=== PATIENT | female | born 1955 | race Caucasian/White ===

== ENCOUNTER 2018-02-04 12:56 | Inpatient (IN) | payer OTHER ==
[2018-02-04] MEDS ORDERED: NA CHLORIDE 0.9% 1,000 ML ONE (15:24)
[2018-02-04] MEDS ORDERED: ONDANSETRON 4 MG (ODT) TAB ONE (15:24)
[2018-02-04] MEDS ORDERED: PANTOPRAZOLE 40 MG INJ ONE (15:24)
[2018-02-04 15:36] LABS: Absolute Lymphocytes (CBC) 1.1 K/uL (0.7-4.9); Absolute Monocytes 0.4 K/uL (0.1-1.3); Absolute Neutrophil 9.8 K/uL (1.8-8.0); Basophils % 0.4 % (0-1.3); Eosinophils % 0.4 % (0-4.4); Hematocrit 43.6 % (36.0-45.0); Lymphocytes % 9.6 % (15.3-44.8); MCH 28.4 pg (27.0-35.0); MCV 87.9 fL (80-100); MPV 8.5 fL (7.6-11.3); Monocytes % 3.6 % (3.3-12.3); RBC Red Blood Cell Count 4.96 M/uL (3.86-4.86)
[2018-02-04 15:45] LABS: Potassium 4.1 mEq/L (3.6-5.0)
[2018-02-04 15:51] LABS: Albumin 4.5 g/dL (3.2-5.5); Bilirubin Direct 0.1 mg/dL (0-0.2); Bilirubin Total 0.9 mg/dL (0.3-1.2); Magnesium 1.5 mg/dL (1.8-2.5); Protein, Total 8.6 g/dL (6.0-8.3)
[2018-02-04 15:57] LABS: Protime INR 1.18
[2018-02-04] MEDS ORDERED: ONDANSETRON 4 MG/2 ML VIAL ONE ×2 (16:17→20:02)
--- NOTE | 2018-02-04 16:49 | RAD REPORT ---
EXAM DESCRIPTION: CT - Chest Abd Pelvis Wo Con - 02/04/2018 4:31 pm CLINICAL HISTORY: Epigastric pain, chest pain, right-sided abdominal pain, body aches COMPARISON: None. TECHNIQUE: Axial 5 millimeter thick images of the chest abdomen and pelvis were obtained without ora l or IV contrast. Oral contrast was administered. All CT scans are performed using dose optimization technique as appropriate and may include automated exposure control or mA/KV adjustment according to patient size. FINDINGS: The lungs are clear of mass and infiltrate. No pneumothorax or pleural effusion. No ches t wall mass or abnormal axillary lymphadenopathy seen. Mediastinal and hilar regions show no mass or lymphadenopathy. No cardiomegaly or pericardial effusion. Liver shows fatty infiltration with sparing near the gallbladder fossa. No focal liver lesion. Spleen , pancreas, gallbladder and biliary tree show no acute findings. Gallstones can be occult. No hydronephrosis is present. No obstructing or nonobstructing calculi. Trace amount of stranding is seen in the perinephric fat. This is a symmetric pattern. No adrenal abnormalities. No wall thickeni ng, mass or calculus of the urinary bladder. Uterus and ovaries show no suspicious findings. No gastric dilatation or gastric wall thickening. No dilated large or small bowel. Colon is mostly de compressed with no abnormal stool volume. No measurable diverticulosis. Contrast or calcifications ar e present in the appendix. Tail of the pancreas is relatively prominent and 10-11 mm. Trace amount of stranding is seen in the periappendiceal fat. The appendix lies in the midline pelvis. This could ge nerated and atypical presentation for pain. No free air, free fluid or inflammatory stranding. No he rnia, mass or bulky lymphadenopathy. Disc and bony degenerative changes are present. IMPRESSION: The appendix is relatively prominent in size with questionable stranding in the adjacent fat. The appendix is positioned in the midline pelvis. Acute appendicitis is certainly not definitive. Correlation is needed with any clinical or laboratory findings. The appendix location could result in atypical clinical exam findings for appendicitis. Fatty infiltration of the liver. No hydronephrosis or acute finding. Isodense masses and pyelonephritis are not excluded. No acute or significant CT chest finding.
[2018-02-04 17:09] LABS: Blood Morphology Comment NOT SEEN (NOT SEEN); Platelet Estimate ADEQ; Urine White Blood Cell Casts OK
[2018-02-04 18:01] LABS: Urine Blood 1+ (NEG); Urine Glucose NEGATIVE (NEG); Urine Protein 2+ (NEG); Urine Specific Gravity 1.025 (1.005-1.030); Urine pH 5.5 (5.0-7.0)
--- NOTE | 2018-02-04 18:03 | EDPHYS ---
Physician Documentation [facility] Name: Radha Mendez Age: 62 yrs Sex: Female : 1955 Arrival Date: 02/04/2018 Time: 13:00 Bed 27 Private MD: Cher Gilliland ED Physician Arley Bhagat HPI: 02/04 15:09 This 62 yrs old Female presents to ER via Ambulatory with complaints of cp Nausea, Abdominal Pain. 15:09 The patient presents to the emergency department with nausea, with "dry heaves", cp vomiting, that is intermittent. Onset: The symptoms/episode began/occurred this morning, at 06:00. 15:09 Possible causes: unknown. cp 15:09 Associated signs and symptoms: Pertinent positives: increasing right lower abdominal cp pain since this morning. Severity of symptoms: in the emergency department the symptoms are worse moderately. Historical: - Allergies: 13:24 Codeine; hj 13:24 Iodine; hj 13:24 Latex, Natural Rubber; hj - Home Meds: 13:24 amlodipine 5 mg tab 1 tab once daily [Active]; escitalopram oxalate 10 mg Oral tab 1 hj tab once daily [Active]; lisinopril 20 mg Oral tab 1 tab once daily [Active]; ProAir HFA 90 mcg/actuation inhalation HFAA 1 puff every 4 hours [Active]; Xarelto 20 mg Oral tab [Active]; - PMHx: 13:24 a-fib; Hypertension; hj - PSHx: 13:24 ; hj - Immunization history:: Pneumococcal vaccine status is unknown. - Social history:: Smoking status: unknown. ROS: 15:15 Constitutional: Positive for poor PO intake, Negative for body aches, chills, fever. cp 15:15 Eyes: Negative for injury, pain, redness, and discharge, ENT: Negative for injury, cp pain, and discharge, Cardiovascular: Negative for chest pain, palpitations, and edema, Respiratory: Negative for shortness of breath, cough, wheezing, and pleuritic chest pain. 15:15 Abdomen/GI: Positive for abdominal pain, nausea and vomiting, Negative for diarrhea, constipation, black/tarry stool, rectal bleeding. 15:15 Back: Negative for pain at rest, pain with movement, radiated pain. 15:15 : Negative for urinary symptoms. 15:15 Skin: Negative for cellulitis, rash. 15:15 Neuro: Negative for altered mental status, headache, weakness. 15:15 All other systems are negative. Exam: 15:22 Constitutional: The patient appears alert, awake, non-diaphoretic, non-toxic, well cp developed, well nourished, obese, uncomfortable, mild distress 15:22 Head/Face: Normocephalic, atraumatic. cp 15:22 Eyes: Periorbital structures: appear normal, Pupils: equal, round, and reactive to light and accomodation, Extraocular movements: intact throughout, Conjunctiva: normal, no exudate, no injection, Sclera: no appreciated abnormality, Lids and lashes: appear normal, bilaterally. 15:22 ENT: External ear(s): are unremarkable, Nose: is normal, Mouth: Lips: moist, Oral mucosa: pink and intact, moist, Posterior pharynx: is normal, airway is patent, no erythema, no exudate, Voice: is normal. 15:22 Neck: ROM/movement: is normal, is supple, without pain, no range of motions limitations, no meningismus, no nuchal rigidity. 15:22 Chest/axilla: Inspection: normal, Palpation: is normal, no crepitus, no tenderness. 15:22 Cardiovascular: Rate: normal, Rhythm: regular, Pulses: Pulses are 2+ in right radial artery and left radial artery. Edema: is not appreciated, JVD: is not appreciated. 15:22 Respiratory: the patient does not display signs of respiratory distress, Respirations: normal, no use of accessory muscles, no retractions, no splinting, no tachypnea, labored breathing, is not present, Breath sounds: are clear throughout, no decreased breath sounds, no stridor, no wheezing. 15:22 Abdomen/GI: Inspection: abdomen appears normal, Bowel sounds: active, all quadrants, Palpation: soft, in all quadrants, mild abdominal tenderness, in the epigastric area, moderate abdominal tenderness, in the suprapubic area and right lower quadrant, rebound tenderness, is appreciated in the right lower quadrant, involuntary guarding, is elicited in the right lower quadrant. 15:22 Back: CVA tenderness, is absent. 15:22 Skin: cellulitis, is not appreciated, no rash present. 15:22 Neuro: Orientation: to person, place \\T\\ time. Mentation: is normal, Motor: moves all fours, strength is normal, Sensation: no obvious gross deficits. 15:35 ECG was reviewed by the Attending Physician. Vital Signs: 13:25 BP 158 / 71; Pulse 75; Resp 18; Temp 97.7(O); Pulse Ox 100% on R/A; Weight 136.08 kg; hj Height 5 ft. 4 in. (162.56 cm); Pain 8/10; 15:30 BP 179 / 92; Pulse 76; Resp 18; Pulse Ox 96% ; rk2 16:00 BP 179 / 91; Pulse 73; Resp 18; Pulse Ox 96% on R/A; rk2 17:30 BP 187 / 93; Pulse 79; Resp 18; rk2 18:00 BP 192 / 98; Pulse 75; Resp 17; Pulse Ox 96% on R/A; rk2 13:25 Body Mass Index 51.50 (136.08 kg, 162.56 cm) hj MDM: 14:48 Patient medically screened. 15:00 Differential diagnosis: gastritis, cholecystitis, pancreatitis, appendicitis, viral cp gastroenteritis, gastroenteritis, acute GA. Test interpretation: by ED physician or midlevel provider: ECG, plain radiologic studies. 17:55 Data reviewed: vital signs, nurses notes, lab test result(s), radiologic studies, CT cp scan, plain films. 18:00 Physician consultation: Elfego Mccurdy MD was called at 18:00, was contacted at 18:00, regarding patient's condition, and will see patient in ED, shortly. 18:10 Physician consultation: Lamin Chavez MD was contacted at 18:10, regarding admission, to the operating room, patient's condition. 02/04 15:00 Order name: Basic Metabolic Panel; Complete Time: 16:11 02/04 17:41 Interpretation: Normal except: NA 134; CL 97; GLUC 175; GFR 62. cp 02/04 15:00 Order name: BNP; Complete Time: 16:11 02/04 15:00 Order name: CBC with Diff; Complete Time: 17:31 02/04 16:12 Interpretation: Normal except: WBC 11.4; RBC 4.96; QUINTEN% 86.0; LYM% 9.6; NEUT A 9.8. 02/04 15:00 Order name: Ckmb; Complete Time: 16:11 02/04 15:00 Order name: CPK; Complete Time: 16:11 cp 02/04 15:00 Order name: LFT's; Complete Time: 16:11 cp 02/04 15:00 Order name: Magnesium; Complete Time: 16:11 cp 02/04 15:00 Order name: PT-INR; Complete Time: 16:11 cp 02/04 15:00 Order name: Ptt, Activated; Complete Time: 16:11 cp 02/04 15:00 Order name: Troponin (emerg Dept Use Only); Complete Time: 16:11 cp 02/04 15:00 Order name: XRAY Chest (1 view) cp 02/04 15:00 Order name: Lipase; Complete Time: 16:11 cp 02/04 17:09 Order name: CBC Smear Scan; Complete Time: 17:31 EDMS 02/04 17:37 Order name: Urine Dipstick--Ancillary (enter results); Complete Time: 18:03 ag 02/04 18:03 Interpretation: Normal except: UKET 1+; UBLD 1+; UPROT 2+. cp 02/04 15:00 Order name: EKG; Complete Time: 15:01 cp 02/04 15:00 Order name: Cardiac monitoring; Complete Time: 15:22 cp 02/04 15:00 Order name: EKG - Nurse/Tech; Complete Time: 15:35 cp 02/04 15:00 Order name: IV Saline Lock; Complete Time: 15:22 cp 02/04 15:00 Order name: Labs collected and sent; Complete Time: 15:22 cp 02/04 15:00 Order name: O2 Per Protocol; Complete Time: 15:22 cp 02/04 15:00 Order name: O2 Sat Monitoring; Complete Time: 15:22 cp 02/04 15:00 Order name: Urine Dipstick-Ancillary (obtain specimen); Complete Time: 17:32 cp 02/04 16:14 Order name: CT Chest Abdomen Pelvis W/O Contrast: may give oral contrast; Complete cp Time: 17:31 EC:35 Rate is 75 beats/min. Rhythm is regular. MO interval is normal. QRS interval is normal. cp QT interval is normal. No ST changes noted. Interpreted by me. Reviewed by me. Administered Medications: 15:09 Drug: Zofran 4 mg Route: PO; rk2 18:52 Follow up: Response: No adverse reaction rk2 15:29 Drug: ProTONIX 40 mg Route: IVP; Site: right antecubital; rk2 18:51 Follow up: Response: No adverse reaction rk2 15:29 Drug: NS 0.9% 1000 ml Route: IV; Rate: 1 bolus; Site: right antecubital; rk2 18:51 Follow up: Response: No adverse reaction; IV Status: Completed infusion rk2 16:00 Drug: Zofran 4 mg Route: IVP; Site: right antecubital; rk2 18:09 Drug: Zosyn 3.375 grams Route: IVPB; Infused Over: 60 mins; Site: right antecubital; rk2 18:40 Follow up: Response: No adverse reaction; IV Status: Completed infusion rk2 18:09 Drug: morphine 4 mg Route: IVP; Site: right antecubital; rk2 18:40 Follow up: Response: No adverse reaction; Pain is decreased rk2 18:45 Drug: Magnesium Sulfate 2 grams Route: IVPB; Infused Over: 1 hrs; Site: right rk2 antecubital; 18:49 Follow up: IV Status: Pt. sent to OR; Pt. sent to OR rk2 Disposition: 02/05 06:56 Co-signature as Attending Physician, Arley Bhagat MD I agree with the assessment and kristin plan of care. Disposition: 02/04/18 18:03 Hospitalization ordered by Yecenia Chester for Inpatient Admission. Preliminary diagnosis are Acute appendicitis, Nausea and vomiting. - Bed requested for Operating Room. - Status is Inpatient Admission. iw - Condition is Stable. - Problem is new. - Symptoms have improved. UTI on Admission? No Signatures: Dispatcher [employer] Arley Gonzales MD MD cha Williams, Irene, RN RN iw Joaquin, Henry, RN RN hj Page, Corey, PA PA cp Kidder, Rhonda, RN RN rk2 Corrections: (The following items were deleted from the chart) 16:02/03 15:22 Constitutional: The patient appears alert, awake, non-diaphoretic, cp non-toxic, well developed, well nourished, obese, uncomfortable, cp 02/05 16:22 02/03 15:22 Head/Face: Normocephalic, atraumatic. Eyes: Pupils equal round and reactive cp to light, extra-ocular motions intact. Lids and lashes normal. Conjunctiva and sclera are non-icteric and not injected. Cornea within normal limits. Periorbital areas with no swelling, redness, or edema. ENT: Nares patent. No nasal discharge, no septal abnormalities noted. Tympanic membranes are normal and external auditory canals are clear. Oropharynx with no redness, swelling, or masses, exudates, or evidence of obstruction, uvula midline. Mucous membranes moist. Chest/axilla: Normal chest wall appearance and motion. Nontender with no deformity. No lesions are appreciated. cp 02/06 16:02/03 15:22 Cardiovascular: Rate: normal, Rhythm: regular, Pulses: Pulses are 2+ in cp right radial artery and left radial artery. Edema: is not appreciated, JVD: is not appreciated, cp 02/06 16:02/03 15:22 Respiratory: the patient does not display signs of respiratory distress, cp Respirations: normal, no use of accessory muscles, no retractions, no splinting, no tachypnea, labored breathing, is not present, Breath sounds: are clear throughout, no decreased breath sounds, no stridor, no wheezing, cp 02/05 15:22 Abdomen/GI: Inspection: abdomen appears normal, Bowel sounds: active, all cp quadrants, Palpation: soft, in all quadrants, moderate abdominal tenderness, in the epigastric area and right lower quadrant, rebound tenderness, is appreciated in the right lower quadrant, involuntary guarding, is elicited in the right lower quadrant, cp 02/06 16:02/03 15:22 Back: pain, is absent, CVA tenderness, is absent, cp cp 02/06 16:02/03 15:22 Skin: cellulitis, is not appreciated, no rash present. cp cp 02/05 15:22 Neuro: Orientation: to person, place \\T\\ time. Mentation: is normal, cp Cerebellar function: is grossly normal, Motor: moves all fours, strength is normal, Sensation: no obvious gross deficits, cp
--- NOTE | 2018-02-04 18:03 | ER ---
Nurse's Notes [facility] Name: Radha Mendez Age: 62 yrs Sex: Female : 1955 Arrival Date: 02/04/2018 Time: 13:00 Bed 27 Private MD: Cher Gilliland Diagnosis: Acute appendicitis;Nausea and vomiting Presentation: 02/04 13:21 Presenting complaint: Patient states: i am hurting on my R lower abd and middle area hj (epigastric area) since this morning and im burping a lot; reports chills; reports nausea;. Transition of care: patient was not received from another setting of care. Onset of symptoms was February 04, 2018. Care prior to arrival: None. 13:21 Method Of Arrival: Ambulatory hj 13:21 Acuity: BRANDAN 3 hj Triage Assessment: 13:24 General: Appears in no apparent distress. uncomfortable, Behavior is calm, cooperative, hj appropriate for age. Pain: Complains of pain in epigastric area and right lower quadrant. GI: Reports lower abdominal pain, upper abdominal pain, nausea, vomiting. Historical: - Allergies: 13:24 Codeine; hj 13:24 Iodine; hj 13:24 Latex, Natural Rubber; hj - Home Meds: 13:24 amlodipine 5 mg tab 1 tab once daily [Active]; escitalopram oxalate 10 mg Oral tab 1 hj tab once daily [Active]; lisinopril 20 mg Oral tab 1 tab once daily [Active]; ProAir HFA 90 mcg/actuation inhalation HFAA 1 puff every 4 hours [Active]; Xarelto 20 mg Oral tab [Active]; - PMHx: 13:24 a-fib; Hypertension; hj - PSHx: 13:24 ; hj - Immunization history:: Pneumococcal vaccine status is unknown. - Social history:: Smoking status: unknown. Screenin:00 Abuse screen: Denies threats or abuse. rk2 15:00 Nutritional screening: No deficits noted. Tuberculosis screening: No symptoms or risk rk2 factors identified. Fall Risk None identified. Assessment: 13:25 GI: Abdomen is non-distended, obese. hj 15:43 General: Appears uncomfortable, obese, well groomed, well nourished. Pain: Complains of rk2 pain in abdomen and right lower quadrant and epigastric area. Neuro: Level of Consciousness is alert, obeys commands, Oriented to person, place, time, situation. Cardiovascular: Rhythm is regular. Respiratory: Airway is patent Respiratory effort is even, unlabored, Respiratory pattern is regular, symmetrical. Derm: Skin is pink, warm \T\ dry. 16:25 Reassessment: Pt. taken to CT by wheelchair... some improvement with nausea after rk2 medication. 16:40 Reassessment: Pt. returned from CT. rk2 17:05 Reassessment: Pt. ambulated to restroom without difficulty... attempting to provide rk2 urine sample. 18:45 Reassessment: Pt. taken to OR on sugrney. rk2 Vital Signs: 13:25 BP 158 / 71; Pulse 75; Resp 18; Temp 97.7(O); Pulse Ox 100% on R/A; Weight 136.08 kg; hj Height 5 ft. 4 in. (162.56 cm); Pain 8/10; 15:30 BP 179 / 92; Pulse 76; Resp 18; Pulse Ox 96% ; rk2 16:00 BP 179 / 91; Pulse 73; Resp 18; Pulse Ox 96% on R/A; rk2 17:30 BP 187 / 93; Pulse 79; Resp 18; rk2 18:00 BP 192 / 98; Pulse 75; Resp 17; Pulse Ox 96% on R/A; rk2 13:25 Body Mass Index 51.50 (136.08 kg, 162.56 cm) hj ED Course: 13:00 Patient arrived in ED. mr 13:01 Cher Gilliland MD is Private Physician. mr 13:23 Triage completed. hj 13:25 Arm band placed on left wrist. hj 14:37 Kely Ruano, JENAE is Primary Nurse. rk2 14:48 Arley Rajan PA is PHCP. cp 14:48 Arley Bhagat MD is Attending Physician. cp 15:00 Patient has correct armband on for positive identification. Placed in gown. Bed in low rk2 position. Call light in reach. 15:26 X-ray completed. Portable x-ray completed in exam room. Patient tolerated procedure kw1 well. 15:27 XRAY Chest (1 view) In Process Unspecified. EDMS 15:45 EKG done, by research laboratory technician. reviewed by Arley ROGERS. at1 16:24 CT Chest Abdomen Pelvis W/O Contrast: may give oral contrast Sent. rk2 16:31 CT Chest Abdomen Pelvis W/O Contrast: may give oral contrast In Process Unspecified. EDMS 18:02 Yecenia Chester MD is Hospitalizing Provider. cp 18:45 No provider procedures requiring assistance completed. rk2 18:45 Patient admitted, IV remains in place. rk2 Administered Medications: 15:09 Drug: Zofran 4 mg Route: PO; rk2 18:52 Follow up: Response: No adverse reaction rk2 15:29 Drug: ProTONIX 40 mg Route: IVP; Site: right antecubital; rk2 18:51 Follow up: Response: No adverse reaction rk2 15:29 Drug: NS 0.9% 1000 ml Route: IV; Rate: 1 bolus; Site: right antecubital; rk2 18:51 Follow up: Response: No adverse reaction; IV Status: Completed infusion rk2 16:00 Drug: Zofran 4 mg Route: IVP; Site: right antecubital; rk2 18:09 Drug: Zosyn 3.375 grams Route: IVPB; Infused Over: 60 mins; Site: right antecubital; rk2 18:40 Follow up: Response: No adverse reaction; IV Status: Completed infusion rk2 18:09 Drug: morphine 4 mg Route: IVP; Site: right antecubital; rk2 18:40 Follow up: Response: No adverse reaction; Pain is decreased rk2 18:45 Drug: Magnesium Sulfate 2 grams Route: IVPB; Infused Over: 1 hrs; Site: right rk2 antecubital; 18:49 Follow up: IV Status: Pt. sent to OR; Pt. sent to OR rk2 Intake: Outcome: 18:03 Decision to Hospitalize by Provider. cp 18:45 Admitted to OR accompanied by tech. rk2 18:45 Condition: good 18:45 Instructed on the need for admit. 19:05 Patient left the ED. iw Signatures: Dispatcher [employer] EDHI Allison Tiwari Irene, RN RN iw Beryl livingston, director distribution EKG Tat1 Elfego Miranda RN RN hj Page, Corey, PA PA cp Amrita Hanson kw1 Kely Ruano RN RN rk2 Corrections: (The following items were deleted from the chart) 13:27 13:25 Pulse 75bpm; Resp 18bpm; Pulse Ox 100% RA; Temp 97.7F Oral; 136.08 kg; Height 5 hj ft. 4 in.; BMI: 51.4; Pain 8/10; hj
--- NOTE | 2018-02-04 18:09 | RAD REPORT ---
EXAM DESCRIPTION: [place] Single View02/04/2018 3:28 pm CLINICAL HISTORY: Abdominal pain COMPARISON: November 2017 FINDINGS: The lungs appear clear of acute infiltrate. The heart is mildly enlarged IMPRESSION: No acute abnormalities displayed
[2018-02-04] MEDS ORDERED: MORPHINE 4 MG/ML SYR ONE (18:22)
[2018-02-04] MEDS ORDERED: PIPER/TAZO/NS 3.375gm 3.375 GM/100 ML BAG ONE (18:22)
[2018-02-04] MEDS ORDERED: Magnesium Sulfate 2gm IVPB 2 G/50 ML BAG IV ONE (18:51)
[2018-02-04] MEDS ORDERED: PROPOFOL 200 MG/20 ML VIAL IV ONE (19:03)
[2018-02-04] MEDS ORDERED: LIDOCAINE 2% MPF 5 ML VIAL ONE (19:07)
[2018-02-04] MEDS ORDERED: ROCURONIUM 50 MG/5 ML VIAL IV ONE (19:08)
[2018-02-04] MEDS ORDERED: FENTANYL CITR 100 MCG/2 ML ONE (19:09)
[2018-02-04] MEDS ORDERED: Ringers Lactate 1,000 ML IV ONE (19:22)
[2018-02-04] MEDS ORDERED: ONDANSETRON 4 MG/2 ML VIAL IV PRN (19:31)
[2018-02-04] MEDS ORDERED: HYDROMORPHONE HCL 1 MG/ML INJ IV PRN (19:31)
[2018-02-04] MEDS ORDERED: CEFAZOLIN/NS 1gm 1 GM/50 ML BAG IVPB SCH (19:45)
[2018-02-04] MEDS ORDERED: DEXAMETHASONE 10 MG/ML VIAL ONE (20:01)
[2018-02-04] MEDS ORDERED: KETOROLAC 30 MG/ML INJ ONE (20:02)
[2018-02-04] MEDS ORDERED: GLYCOPYRROLATE 0.2 MG/ML SYR ONE ×3 (20:17→20:31)
[2018-02-04] MEDS ORDERED: NEOSTIGMINE 1 MG/ML -5 ML SYRINGE ONE (20:31)
--- NOTE | 2018-02-04 20:41 | P.BOP ---
Preoperative diagnosis: acute appendicitis, morbid obesity, htn, atrial fibrilation on anticoagulat Postoperative diagnosis: same, incarcerated umbilical hernia Primary procedure: 1. EMERGENT Laparoscopic appendectomy Secondary procedure: 2. open repair of incarcerated umbilical hernia Estimated blood loss: <10cc Specimen: appendix, hernia sac Findings: as above Anesthesia: General Complications: None Transferred to: Recovery Room Condition: Good
[2018-02-04] MEDS ORDERED: BUPIVACAINE 0.5% PF 10 ML VIAL ONE (21:07)
--- NOTE | 2018-02-04 21:44 | EKG ---
Test Date: 2018-02-04 Test Time: 15:33:29 Food Counter Attendant: GLORIA MEASUREMENT RESULTS: Intervals: Rate: 75 [place]: 154 QRSD: 88 QT: 410 QTc: 457 [place]: P: -21 [place]: 154 QRS: -7 T: 42 INTERPRETIVE STATEMENTS: Sinus rhythm with occasional premature ventricular complexes Possible Anterior infarct, age undetermined Abnormal ECG Compared to ECG 12/03/2017 07:01:26 Ventricular premature complex(es) now present Sinus arrhythmia no longer present Myocardial infarct finding still present Electronically Signed On 02-04-18 21:44:13 CDT by Jesse Infante
--- NOTE | 2018-02-04 23:38 | CON ---
Date of Consultation: 02/04/2018 Diagnosis: Acute appendicitis, right lower quadrant pain. History Of Present Illness: This is the case of a 62-year-old patient, who came to us complaining of periumbilical right lower quadrant tenderness associated with nausea, vomiting starting this morning about 9 o'clock in the morning. Last time she ate her meal was at 5 o'clock in the morning today, jessica cabral was breakfast. She denies any previous episodes like this before. Denies any dysuria, hematuri a, hematochezia, or melena. Denies any recent travelling out of the country. Denies any family memb ers sick at home. The patient also stated she had a colonoscopy done about a year ago and she states it was negative done by . Review of Systems: Constitutional: Denies any fever or any chills. Respiratory: Denies any short of breath. Gastrointestinal: As above. Genitourinary: Denies any dysuria, hematuria. Denies any vaginal discharge. Past Medical History: AFib, hypertension, morbid obesity. Medications: Metoprolol and Xarelto. Allergies: LATEX. Social History: She does not smoke. She does not drink alcohol. Family History: Noncontributory. Physical Examination: General: Patient is awake and alert HEENT: Pupils are equal and reactive, anicteric. Neck: Supple. Chest: Clear. Heart: S1, S2. Abdomen: Right lower quadrant tenderness with guarding, rebound, and peritonitis. Rectal: Deferred. Breast: Deferred. Pelvic: Deferred. Extremities: Good capillary refill. Diagnostic Data: CAT scan of the abdomen and pelvis shows the finding consistent with acute appendic itis, per Dr. Gonzales. Laboratory Data: Blood work shows WBC count of 11.4 with hemoglobin of 14.1. INR is 1.18, chloride 97, glucose 125. Assessment: A 62-year-old patient with acute appendicitis. The benefits, alternatives, and risks of laparoscopic, possible open, appendectomy were fully explained which include but are not limited to infection, bleeding, damage to adjacent structures, anesthesia complication, abscess, hematoma, MA, o r even , specially hematoma since she is right now on Xarelto, a blood thinner. She understands the emergency situation. OR was emergently called. The patient will be taken to the OR right now. /RUDIL Voice ID: [id number] Report ID: [id number]
--- NOTE | 2018-02-04 23:56 | OP ---
Date of Procedure: 02/04/2018 Surgeon: Elfego Mccurdy MD Preoperative Diagnoses: Acute appendicitis, morbid obesity, hypertension, atrial fibrillation, on an ticoagulation. Postoperative Diagnoses: Acute appendicitis, morbid obesity, hypertension, atrial fibrillation, on a nticoagulation plus incarcerated umbilical hernia. Procedures: 1.Laparoscopic appendectomy. 2.Open repair of incarcerated umbilical hernia. Estimated Blood Loss: Less than 10 cc. Specimen: Appendix and hernia sac. Finding: Acute appendicitis. Also an incarcerated umbilical hernia. Anesthesia: General plus local. Indications: This is a case of a 62-year-old patient, who came to us with above diagnosis. Fully ex plained the benefits, alternatives, and risks of laparoscopic, possible open appendectomy which inclu de but are not limited to infection, bleeding, damage to adjacent structures, anesthesia complication , abscess, hematoma, ID, or even . She understands this may not relieve any symptoms. She migh t need more than one surgical intervention. She understand also the risk of hematoma the since patie nt is on anticoagulation. The patient understand also risks of DVTs and stroke. Patient explained t he importance of losing weight. Procedure In Detail: The patient was brought to the operating room emergently, placed in supine posi tion. Anesthesia was done without complication. Abdominal area was prepped and draped in a sterile fashion. Marcaine 0.5% injected for local anesthetic, followed by sharp incision of the skin in the infraumbilical region. Incision was carried down to fascia, which was opened under direct vision. P eritoneum was encountered, opened under direct vision. Vicryl #1 placed inside the fascia. Shyla t rocar was carefully introduced. Pneumoperitoneum was obtained. I proceeded to place 2 more trocars, one suprapubic and one in left lower quadrant under direct visualization. We noticed the patient walton s an acute appendicitis with swelling of the distal 2/3rd of the appendix. The base of appendix seem ed to be spared, so we created a window in the base of the appendix, transected that with an Endo-RISA 45 mm, 3.5 in the mesoappendix with sequential Endo-RISA 45 mm, 2.5. Further hemostasis was obtained with the help of hemoclips 5 mm. Appendix was removed from the abdominal cavity using an EndoCatch through the umbilical incision. The area was profusely irrigated and suctioned again. We had meticu lous hemostasis on the patient who is on blood thinners. The appendix looked very inflamed, looked t o have some suppurative component. We proceeded to leave a MIGUEL drain over that area exiting through o ne of the trocar sites secured in place with 3-0 nylon. Once again, area looked nice and clean. At that moment, I proceeded to remove the trocars under direct vision, deflated the pneumoperitoneum, cl osed the umbilical area and umbilical hernia. We connected the umbilical hernia to the umbilical inc ision. Removed the hernia sac. Trimmed the fascia edges and we closed that one defect with #1 Vicry l. The patient tolerated the procedure well. The area was covered with sterile dressings after putt ing isac on it. Sponge count and instrument counts were correct. The patient tolerated the proce dure well. The patient was sent to recovery in stable condition. ASHLEY/KYREE Voice ID: [id number] Report ID: [id number]
[2018-02-05] MEDS ORDERED: CEFAZOLIN SODIUM 1 GM/VIAL ONE (00:38)
[2018-02-05] MEDS ORDERED: NA CHLORIDE 0.9% 200 ML ONE (00:54)
[2018-02-05] MEDS: NA CHLORIDE 0.9% 1,000 ML IV SCH ×2 (00:56→10:18)
[2018-02-05] MEDS: CEFAZOLIN/NS 1gm 1 GM/50 ML BAG IVPB SCH ×2 (00:57→05:53)
[2018-02-05] MEDS: TRAMADOL 37.5mg/APAP 325mg PER TAB PO PRN ×3 (04:41→21:34)
[2018-02-05 05:18] LABS: Absolute Lymphocytes (CBC) 1.1 K/uL (0.7-4.9); Absolute Monocytes 0.2 K/uL (0.1-1.3); Absolute Neutrophil 10.2 K/uL (1.8-8.0); Basophils % 0.1 % (0-1.3); Hematocrit 40.3 % (36.0-45.0); Lymphocytes % 9.8 % (15.3-44.8); MCH 29.8 pg (27.0-35.0); MCV 88.8 fL (80-100); MPV 8.9 fL (7.6-11.3); Monocytes % 1.5 % (3.3-12.3); RBC Red Blood Cell Count 4.53 M/uL (3.86-4.86)
[2018-02-05 05:37] LABS: Albumin 3.7 g/dL (3.2-5.5); Bilirubin Total 0.7 mg/dL (0.3-1.2); Potassium 5.4 mEq/L (3.6-5.0)
[2018-02-05 06:35] LABS: Magnesium 2.3 mg/dL (1.8-2.5)
[2018-02-05] MEDS ORDERED: NA CHLORIDE 0.9% 1,000 ML IV ONE (07:12)
--- NOTE | 2018-02-05 08:05 | P.HP ---
Certification for Inpatient Patient admitted to: Inpatient With expected LOS: >2 Midnights Patient will require the following post-hospital care: None Practitioner: I am a practitioner with admitting privileges, knowledge of patient current condition, hospital course, and medical plan of care. Services: Services provided to patient in accordance with Admission requirements found in Title 42 Section 412.3 of the Code of Federal Regulations Patient History Date of Service: 02/04/18 Reason for admission: Acute appendicitis History of Present Illness: Patient is a 62-year-old female came into the hospital with abdominal pain. Pain was mainly in the right lower quadrant. Patient had a CT scan which revealed enlarged appendix. Patient was seen by General surgery and taken to the operating room for laparoscopic appendectomy. After the procedure patient is feeling much better. She currently is not having any complaints. She is on anti coagulation for atrial fibrillation. However at this time she is not having any signs of bleeding. She is clinically doing well and she may get to go home in the morning depending on how progresses and her lab workup. Allergies codeine Allergy (Verified 02/05/18 04:40) Unknown iodine Allergy (Verified 02/05/18 04:40) Unknown Latex, Natural Rubber Allergy (Uncoded 06/23/17 21:59) Unknown Home Medications: Amlodipine [Norvasc*] 1 tab PO DAILY 02/04/18 Escitalopram Oxalate 1 tab PO DAILY 02/04/18 Lisinopril [Prinivil*] 1 tab PO DAILY 02/04/18 Proair Hfa 90 Mcg 1 puff IH Q4HR 02/04/18 Rivaroxaban [Xarelto] 1 tab PO DAILY 02/04/18 - Past Medical/Surgical History Has patient received pneumonia vaccine in the past: No -: Sleep Apnea -: HTN -: AFIB -: c- section - Family History Father Family History: Reviewed- Non-Contributory - Social History Smoking Status: Never smoker Alcohol use: No CD- Drugs: No Caffeine use: No Review of Systems 10-point ROS is otherwise unremarkable Physical Examination - Vital Signs Temperature: 98.0 F Blood Pressure: 116/57 Pulse: 79 Respirations: 16 Pulse Ox (%): 94 - Physical Exam General: Alert, In no apparent distress, Oriented x3 HEENT: Atraumatic, PERRLA, Mucous membr. moist/pink, EOMI, Sclerae nonicteric Neck: Supple, 2+ carotid pulse no bruit, No LAD, Without JVD or thyroid abnormality Respiratory: Clear to auscultation bilaterally, Normal air movement Cardiovascular: Regular rate/rhythm, Normal S1 S2, No murmurs Gastrointestinal: Normal bowel sounds, Soft and benign, Non-distended, Tenderness Musculoskeletal: No clubbing, No swelling, No tenderness Integumentary: No rashes Neurological: Normal gait, Normal speech, Normal strength at 5/5 x4 extr, Normal tone, Sensation intact, Cranial nerves 3-12 intact, Normal affect Lymphatics: No axilla or inguinal lymphadenopathy - Studies Laboratory Data (last 24 hrs) 02/04/18 15:19: PT 14.0 H, INR 1.18, APTT 26.8 02/04/18 15:19: WBC 11.4 H, Hgb 14.1, Hct 43.6, Plt Count 243 02/04/18 15:19: B-Natriuretic Peptide 77 02/04/18 15:19: Sodium 134 L, Potassium 4.1, BUN 14, Creatinine 0.91, Glucose 175 H, Magnesium 1.5 L, Total Bilirubin 0.9, AST 27, ALT 30, Alkaline Phosphatase 81, Lipase 41 Assessment & Plan - Problems (Diagnosis) (1) Acute appendicitis Current Visit: Yes Status: Acute (2) Hypertension Current Visit: Yes Status: Acute (3) Atrial fibrillation Current Visit: Yes Status: Acute (4) Proteinuria Current Visit: Yes Status: Acute - Plan Plan: 1. Continue with IV hydration 2. Continue with IV antibiotics 3. Continue with pain control 4. Advanced diet as tolerated 5. General surgery consultation appreciated 6. Monitor H&H, and continue to monitor of additional labs including renal function 7. GI and DVT prophylaxis Discharge Plan: Home Plan to discharge in: 48 Hours - Advance Directives Does patient have a Living Will: No Does patient have a Durable POA for Healthcare: No - Code Status/Comfort Care Code Status Assessed: Yes Code Status: Full Code Critical Care: No Time Spent Managing PTS Care (In Minutes): 50
[2018-02-05] MEDS: ESCITALOPRAM 20 MG TAB PO SCH (08:56)
[2018-02-05] MEDS: AMLODIPINE 5 MG TAB PO SCH (08:56)
[2018-02-05] MEDS: PROAIR 90 MCG IH SCH ×4 (09:00→21:00)
[2018-02-05 11:21] LABS: Absolute Lymphocytes (CBC) 1.6 K/uL (0.7-4.9); Absolute Monocytes 0.8 K/uL (0.1-1.3); Absolute Neutrophil 9.7 K/uL (1.8-8.0); Basophils % 0.1 % (0-1.3); Hematocrit 39.7 % (36.0-45.0); Lymphocytes % 13.1 % (15.3-44.8); MCH 28.7 pg (27.0-35.0); MPV 8.6 fL (7.6-11.3); Monocytes % 6.6 % (3.3-12.3); RBC Red Blood Cell Count 4.47 M/uL (3.86-4.86)
[2018-02-05 11:53] LABS: Magnesium 2.1 mg/dL (1.8-2.5); Phosphorus 2.6 mg/dL (2.5-4.3); Potassium 4.4 mEq/L (3.6-5.0)
[2018-02-05] MEDS: CEFAZOLIN/SWI 1gm 1 GM/10 ML SYR IV SCH ×2 (12:10→19:27)
--- NOTE | 2018-02-05 13:29 | P.PN ---
Subjective Date of Service: 02/05/18 Chief Complaint: Acute suppurative appendicitis, morbid obesity, atrial fibrilation Subjective: Tolerating diet, Ambulating, Improving Review of Systems Respiratory: Unremarkable Cardiovascular: Unremarkable Gastrointestinal: Nausea (no), Vomiting (no), Diarrhea (no), Distention, Constipation (no), Melena (no), Hematochezia (no) Genitourinary: Dysuria (no) Physical Examination - Vital Signs Temperature: 98.5 F Blood Pressure: 121/55 Pulse: 74 Respirations: 18 Pulse Ox (%): 92 - Physical Exam General: Alert, In no apparent distress, Oriented x3 HEENT: PERRLA, EOMI Neck: Supple Gastrointestinal: Soft and benign, No masses, No rebound, No guarding Musculoskeletal: No erythema, No tenderness, No warmth Integumentary: No rashes, No breakdown, No erythema, No warmth, No cyanosis Neurological: Normal speech - Studies Laboratory Data (last 24 hrs) 02/04/18 15:19: PT 14.0 H, INR 1.18, APTT 26.8 02/04/18 15:19: WBC 11.4 H, Hgb 14.1, Hct 43.6, Plt Count 243 02/04/18 15:19: B-Natriuretic Peptide 77 02/04/18 15:19: Sodium 134 L, Potassium 4.1, BUN 14, Creatinine 0.91, Glucose 175 H, Magnesium 1.5 L, Total Bilirubin 0.9, AST 27, ALT 30, Alkaline Phosphatase 81, Lipase 41 Assessment And Plan - Plan advance diet abx oob is
--- NOTE | 2018-02-05 15:20 | P.PN ---
Subjective Date of Service: 02/05/18 Chief Complaint: Acute suppurative appendicitis, morbid obesity, atrial fibrilation The patient doing well today after surgery no active bleeding Physical Examination - Vital Signs Temperature: 98.5 F Blood Pressure: 121/55 Pulse: 74 Respirations: 18 Pulse Ox (%): 92 - Physical Exam General: Alert, In no apparent distress HEENT: Atraumatic, PERRLA, EOMI Neck: Supple, JVD not distended Respiratory: Clear to auscultation bilaterally, Normal air movement Cardiovascular: Regular rate/rhythm, Normal S1 S2 Gastrointestinal: Normal bowel sounds, No tenderness Musculoskeletal: No tenderness Integumentary: No rashes Neurological: Normal speech, Normal tone, Normal affect Lymphatics: No axilla or inguinal lymphadenopathy - Studies Laboratory Data (last 24 hrs) 02/04/18 15:19: PT 14.0 H, INR 1.18, APTT 26.8 02/04/18 15:19: WBC 11.4 H, Hgb 14.1, Hct 43.6, Plt Count 243 02/04/18 15:19: B-Natriuretic Peptide 77 02/04/18 15:19: Sodium 134 L, Potassium 4.1, BUN 14, Creatinine 0.91, Glucose 175 H, Magnesium 1.5 L, Total Bilirubin 0.9, AST 27, ALT 30, Alkaline Phosphatase 81, Lipase 41 Medications List Reviewed: Yes Assessment And Plan - Current Problems (Diagnosis) (1) Acute appendicitis Onset Date: 02/05/18 Current Visit: Yes Status: Acute (2) Atrial fibrillation Onset Date: 02/05/18 Current Visit: Yes Status: Acute (3) CKD (chronic kidney disease) Onset Date: 02/05/18 Current Visit: Yes Status: Acute Qualifiers: Chronic kidney disease stage: stage 3 (moderate) Qualified Code(s): N18.3 - Chronic kidney disease, stage 3 (moderate) (4) Hypertension Onset Date: 02/05/18 Current Visit: Yes Status: Acute - Plan --continual on intravenous antibiotics --restart anticoagulation tomorrow ==Discharge patient home to
[2018-02-05] MEDS ORDERED: ENOXAPARIN 40 MG/0.4 ML SQ SCH (17:00)
[2018-02-06] MEDS: PROAIR 90 MCG IH SCH ×4 (01:00→12:16)
[2018-02-06] MEDS: NA CHLORIDE 0.9% 1,000 ML IV SCH (01:39)
[2018-02-06] MEDS: CEFAZOLIN/SWI 1gm 1 GM/10 ML SYR IV SCH ×3 (01:39→11:23)
[2018-02-06 05:37] LABS: Absolute Lymphocytes (CBC) 2.7 K/uL (0.7-4.9); Absolute Monocytes 0.8 K/uL (0.1-1.3); Absolute Neutrophil 7.2 K/uL (1.8-8.0); Basophils % 0.3 % (0-1.3); Eosinophils % 0.2 % (0-4.4); Hematocrit 37.5 % (36.0-45.0); Lymphocytes % 25.4 % (15.3-44.8); MCH 29.2 pg (27.0-35.0); MPV 8.8 fL (7.6-11.3); Monocytes % 7.4 % (3.3-12.3); RBC Red Blood Cell Count 4.17 M/uL (3.86-4.86)
[2018-02-06 06:03] LABS: Albumin 3.4 g/dL (3.2-5.5); Bilirubin Total 0.6 mg/dL (0.3-1.2); Potassium 4.3 mEq/L (3.6-5.0); Protein, Total 6.5 g/dL (6.0-8.3)
[2018-02-06] MEDS: AMLODIPINE 5 MG TAB PO SCH (08:57)
[2018-02-06] MEDS: ESCITALOPRAM 20 MG TAB PO SCH (08:57)
[2018-02-06] MEDS: TRAMADOL 37.5mg/APAP 325mg PER TAB PO PRN (09:02)
--- NOTE | 2018-02-06 09:33 | P.PN ---
Subjective Date of Service: 02/06/18 Chief Complaint: Acute suppurative appendicitis, morbid obesity, atrial fibrilation Subjective: Improving (Patient states her pain is minimal, no acute events, has been ambulatory.) Physical Examination - Vital Signs Temperature: 97.5 F Blood Pressure: 144/80 Pulse: 72 Respirations: 20 Pulse Ox (%): 92 - Physical Exam General: Alert, In no apparent distress, Cooperative HEENT: Mucous membr. moist/pink Respiratory: Normal air movement Gastrointestinal: Other (soft, mild appropriate TTP, ND, incisions clean, MIGUEL serosanguanous.) Neurological: Normal speech - Studies Medications List Reviewed: Yes Assessment And Plan - Current Problems (Diagnosis) (1) Acute appendicitis Onset Date: 02/05/18 Current Visit: Yes Status: Acute Plan: --Cross Coverage note for Dr. Mccurdy -- Patient ok for discharge home from surgical standpoint - post op instructions reviewed with patient with Dr. Chavez at bedside - follow up with Dr. Mccurdy next week - MIGUEL drain teaching - incision care
--- NOTE | 2018-02-06 15:34 | P.DS ---
Admission Date: 02/04/18 Discharge Date: 02/06/18 Disposition: ROUTINE DISCHARGE Discharge Condition: GOOD Reason for Admission: Acute suppurative appendicitis, morbid obesity, atrial fibrilation - Problems (1) Acute appendicitis Onset Date: 02/05/18 Status: Acute (2) Atrial fibrillation Onset Date: 02/05/18 Status: Acute (3) CKD (chronic kidney disease) Onset Date: 02/05/18 Status: Acute Qualifiers: Chronic kidney disease stage: stage 3 (moderate) Qualified Code(s): N18.3 - Chronic kidney disease, stage 3 (moderate) (4) Hypertension Onset Date: 02/05/18 Status: Acute Brief History of Present Illness: [age]-year-old female with admitted hospital for acute appendicitis Hospital Course: As admitted hospital and treated with intravenous antibiotics. She underwent laparoscopic appendectomy without complications particularly she has no excessive bleeding during and after surgery. The patient did well and tolerated diet and the patient is going to be discharged home today Vital Signs/Physical Exam: Temp Pulse Resp BP Pulse Ox 97.4 F 20 L 20 143/68 H 95 02/06/18 12:00 02/06/18 12:00 02/06/18 09:33 02/06/18 12:00 02/06/18 12:00 General: Alert, In no apparent distress HEENT: Atraumatic, PERRLA, EOMI Neck: Supple, JVD not distended Respiratory: Clear to auscultation bilaterally, Normal air movement Cardiovascular: Regular rate/rhythm, Normal S1 S2 Gastrointestinal: Normal bowel sounds, No tenderness Musculoskeletal: No tenderness Integumentary: No rashes Neurological: Normal speech, Normal tone, Normal affect Lymphatics: No axilla or inguinal lymphadenopathy Laboratory Data at Discharge: WBC 10.7 K/uL (4.3-10.9) 02/06/18 04:45 Hgb 12.2 g/dL (12.0-15.0) 02/06/18 04:45 Hct 37.5 % (36.0-45.0) 02/06/18 04:45 Plt Count 226 K/uL (152-406) 02/06/18 04:45 PT 11.8 SECONDS (9.5-12.5) 02/05/18 04:36 INR 1.00 02/05/18 04:36 APTT 26.4 SECONDS (24.3-36.9) 02/05/18 04:36 Sodium 138 mEq/L (135-145) 02/06/18 04:45 Potassium 4.3 mEq/L (3.6-5.0) 02/06/18 04:45 BUN 17 mg/dL (6-20) 02/06/18 04:45 Creatinine 0.99 mg/dL (0.44-1.00) 02/06/18 04:45 Glucose 114 mg/dL (65-120) 02/06/18 04:45 Phosphorus 2.6 mg/dL (2.5-4.3) 02/05/18 11:04 Magnesium 2.1 mg/dL (1.8-2.5) 02/05/18 11:04 Total Bilirubin 0.6 mg/dL (0.3-1.2) 02/06/18 04:45 AST 22 IU/L (10-42) 02/06/18 04:45 ALT 21 IU/L (10-60) 02/06/18 04:45 Alkaline Phosphatase 59 IU/L (42-121) 02/06/18 04:45 B-Natriuretic Peptide 77 pg/ml (<=100) 02/04/18 15:19 Lipase 41 U/L (22-51) 02/04/18 15:19 Home Medications: Amlodipine [Norvasc*] 1 tab PO DAILY 02/04/18 Escitalopram Oxalate 1 tab PO DAILY 02/04/18 Lisinopril [Prinivil*] 1 tab PO DAILY 02/04/18 Proair Hfa 90 Mcg 1 puff IH Q4HR 02/04/18 Rivaroxaban [Xarelto] 1 tab PO DAILY 02/04/18 Hydrocodone Bit/Acetaminophen [[place] 7.5-325 Tablet] 1 each PO Q6H PRN #10 tablet 02/06/18 Levofloxacin [Levaquin] 500 mg PO DAILY #7 tab 02/06/18 New Medications: Hydrocodone Bit/Acetaminophen [[place] 7.5-325 Tablet] 1 each PO Q6H PRN #10 tablet PRN Reason: Pain Levofloxacin [Levaquin] 500 mg PO DAILY #7 tab Patient Discharge Instructions: Keep area dry for 48h then may shower. Diet: AHA Activity: No lifting more than 10 lbs Followup: Elfego Mccurdy MD [ACTIVE - CAN ADMIT] - 1 Week (Follow up in office in 1 week. Call to schedule an appointment.) Time spent managing pt's care (in minutes): 35
== END 2018-02-06 12:51 | disposition home or self-care (01) | DRG 342 ==
LOC: ER 12:56 → ERHOLD 18:34 → 2ND 20:52
PROVIDERS: ADMIT Internal Medicine Hematology & Oncology; ATTEND Hospitalist
PROC: 0WQF0ZZ Repair Abdominal Wall, Open Approach (ICD-10-PCS; 2018-02-04)
PROC: 0DTJ4ZZ Resection of Appendix, Percutaneous Endoscopic Approach (ICD-10-PCS; principal; 2018-02-04 19:00)
DX: K35.80 Unspecified acute appendicitis (principal); K42.0 Umbilical hernia with obstruction, without gangrene; Z68.43 Body mass index [BMI] 50.0-59.9, adult; E66.01 Morbid (severe) obesity due to excess calories; I48.91 Unspecified atrial fibrillation; Z79.01 Long term (current) use of anticoagulants; Z91.040 Latex allergy status; R80.9 Proteinuria, unspecified; I12.9 Hypertensive chronic kidney disease with stage 1 through stage 4 chronic kidney disease, or unspecified chronic kidney disease; N18.3 Chronic kidney disease, stage 3 (moderate)
CPT/HCPCS: 36415; 71045; 71250; 74176; 80048; 80053; 80076; 81003; 82550; 82553; 83690; 83735; 83880; 84100; 84484; 85025; 85610; 85730; 88302; 88304; 88305; 93005; 96361; 96365; 96375; 99285; C9113; J0690; J1100; J1170; J2405; J2543; J2710; J3010; J3475; J7030

== ENCOUNTER 2020-12-20 20:07 | Emergency (ER) | payer OTHER ==
[2020-12-20 21:03] LABS: Absolute Lymphocytes (CBC) 2.4 K/uL (0.7-4.9); Basophils % 0.9 % (0-1.3); Hematocrit 44.7 % (36.0-45.0); Lymphocytes % 33.3 % (15.3-44.8); MPV 9.3 fL (7.6-11.3); Protime INR 1.34
[2020-12-20] MEDS ORDERED: LORazepam 2 MG/ML VIAL ONE (21:14)
[2020-12-20] MEDS ORDERED: METOPROLOL TARTRATE 5 MG/5 ML INJ IV ONE (21:14)
[2020-12-20 21:20] LABS: ALT/SGPT 22 U/L (12-78); AST/SGOT 13 U/L (15-37); Albumin 3.9 g/dL (3.4-5.0); Alkaline Phosphatase 96 U/L (45-117); BUN Blood Urea Nitrogen 20 mg/dL (7-18); Bicarbonate 25 mmol/L (21-32); Bilirubin Direct 0.1 mg/dL (0-0.2); Bilirubin Total 0.3 mg/dL (0.2-1.0); Glucose Level 108 mg/dL (74-106); Magnesium 2.1 mg/dL (1.8-2.4); NT PRO-BNP 283 pg/mL (<125); Potassium 3.7 mmol/L (3.5-5.1); Protein, Total 8.3 g/dL (6.4-8.2); Sodium Level 141 mmol/L (136-145); Troponin (Emerg Dept Use Only) < 0.02 ng/mL (0.0-0.045)
[2020-12-20] MEDS ORDERED: METOPROLOL TAR 25 MG TAB ONE (21:48)
--- NOTE | 2020-12-21 00:31 | ER ---
Nurse's Notes [facility] Name: Radha Mendez Age: 65 yrs Sex: Female : 1955 Arrival Date: 12/20/2020 Time: 20:08 Bed 14 Private MD: Diagnosis: Essential (primary) hypertension Presentation: 12/20 20:25 Chief complaint: Patient states: SOB with exertion and tightness to throat area since ll1 walking down driveway taking out the trash today at 1730. BP 190/119, HR 118 at home. Coronavirus screen: Client denies travel out of the [place] in the last 14 days. At this time, the client does not indicate any symptoms associated with coronavirus-19. Ebola Screen: Patient denies travel to an Ebola-affected area in the 21 days before illness onset. Initial Sepsis Screen: Does the patient meet any 2 criteria? HR > 90 bpm. No. Patient's initial sepsis screen is negative. Does the patient have a suspected source of infection? No. Patient's initial sepsis screen is negative. Risk Assessment: Do you want to hurt yourself or someone else? Patient reports no desire to harm self or others. Onset of symptoms was December 20, 2020. 20:25 Method Of Arrival: Ambulatory ll1 20:25 Acuity: BRANDAN 2 ll1 Historical: - Allergies: 20:28 Codeine; ll1 20:28 Iodine; ll1 20:28 Latex, Natural Rubber; ll1 - PMHx: 20:28 a-fib; Hypertension; ll1 - PSHx: 20:28 ; ll1 - Immunization history:: Flu vaccine is up to date. - Social history:: Smoking status: Patient denies any tobacco usage or history of. Patient/guardian denies using alcohol, street drugs, The patient lives with family. - Family history:: not pertinent. Screenin:30 Abuse screen: Denies threats or abuse. Nutritional screening: No deficits noted. jb4 Tuberculosis screening: No symptoms or risk factors identified. Fall Risk None identified. Assessment: 20:30 General: Appears in no apparent distress. uncomfortable, Behavior is calm, cooperative, jb4 appropriate for age. Pain: Complains of pain in LENA jaw Pain does not radiate. Pain currently is 2 out of 10 on a pain scale. Neuro: Level of Consciousness is awake, alert, obeys commands, Oriented to person, place, time, situation. Cardiovascular: Patient's skin is warm and dry. Rhythm is atrial fibrillation with rapid ventricular response. Respiratory: Airway is patent Respiratory effort is even, unlabored, Respiratory pattern is regular, symmetrical. GI: No signs and/or symptoms were reported involving the gastrointestinal system. : No signs and/or symptoms were reported regarding the genitourinary system. EENT: No signs and/or symptoms were reported regarding the EENT system. Derm: Skin is intact, Skin is pink, warm \T\ dry. Musculoskeletal: Circulation, motion, and sensation intact. Range of motion: intact in all extremities. 21:45 Reassessment: Patient appears in no apparent distress at this time. Patient and/or jb4 family updated on plan of care and expected duration. Pain level reassessed. Patient is alert, oriented x 3, equal unlabored respirations, skin warm/dry/pink. Patient states symptoms have improved. 23:00 Reassessment: Patient appears in no apparent distress at this time. Patient and/or jb4 family updated on plan of care and expected duration. Pain level reassessed. Patient is alert, oriented x 3, equal unlabored respirations, skin warm/dry/pink. Patient states feeling better. 12/21 00:00 Reassessment: Patient appears in no apparent distress at this time. Patient and/or jb4 family updated on plan of care and expected duration. Pain level reassessed. Patient is alert, oriented x 3, equal unlabored respirations, skin warm/dry/pink. Patient states feeling better. Patient states symptoms have improved. 00:59 Reassessment: Patient appears in no apparent distress at this time. Patient and/or jb4 family updated on plan of care and expected duration. Pain level reassessed. Patient is alert, oriented x 3, equal unlabored respirations, skin warm/dry/pink. Vital Signs: 12/20 20:25 Pulse 136; Resp 18; Temp 97.0; Pulse Ox 97% ; Weight 133.81 kg; Height 5 ft. 4 in. ll1 (162.56 cm); Pain 3/10; 20:30 rv 20:32 BP 128 / 98; mw2 21:20 BP 111 / 61; Pulse 115; Resp 19; Pulse Ox 96% on R/A; jb4 22:00 BP 105 / 75; Pulse 119; Resp 20; Pulse Ox 96% on R/A; jb4 23:00 BP 113 / 90; Pulse 113; Resp 25; Pulse Ox 97% on R/A; jb4 12/21 00:00 BP 102 / 80; Pulse 99; Resp 14; Pulse Ox 99% on R/A; jb4 00:30 BP 119 / 90; Pulse 111; Resp 18; Pulse Ox 98% on R/A; jb4 12/20 20:25 Body Mass Index 50.64 (133.81 kg, 162.56 cm) ll1 02 20:30 HR 70-140 in triage. rv 21:20 Provider notified of drop in b/p and HR. Received verbal order of 25mg of Lopressor PO, jb4 and to hold remaining IV doses. ED Course: 20:08 Patient arrived in ED. cl3 20:27 Triage completed. ll1 20:28 Arm band placed on Patient placed in an exam room, on a stretcher. ll1 20:32 Steve Benjamin, JENAE is Primary Nurse. jb4 20:32 Bulmaro Tellez MD is Attending Physician. ma2 20:54 Placed in gown. Bed in low position. Call light in reach. Side rails up X2. Verbal jp3 reassurance given. stable cleaner on. Pulse ox on. NIBP on. 20:54 Initial lab(s) drawn, by me, sent to lab. EKG done, by ED staff, reviewed by Bulmaro Tellez MD X-ray(s) taken. Inserted saline lock: 20 gauge in right antecubital area, using aseptic technique. Blood collected. Patient maintains SpO2 saturation greater than 95% on room air. 20:55 XRAY Chest (1 view) In Process Unspecified. EDMS 12/21 01:00 No provider procedures requiring assistance completed. IV discontinued, intact, jb4 bleeding controlled, No redness/swelling at site. Pressure dressing applied. Administered Medications: 12/20 21:04 Drug: Ativan 1 mg Route: IVP; Site: right antecubital; jb4 21:30 Follow up: Response: No adverse reaction; Marked relief of symptoms jb4 21:05 Drug: Metoprolol 5 mg Route: IVP; Site: right antecubital; jb4 21:15 Follow up: Response: No adverse reaction; Marked relief of symptoms jb4 21:30 Drug: Metoprolol 25 mg Route: PO; jb4 22:30 Follow up: Response: No adverse reaction; Marked relief of symptoms jb4 Outcome: 12/21 00:30 Discharge ordered by . naveen 01:00 Discharged to home ambulatory. jb4 01:00 Condition: stable 01:00 Discharge instructions given to patient, Instructed on discharge instructions, follow up and referral plans. Demonstrated understanding of instructions, follow-up care. 01:02 Patient left the ED. jb4 Signatures: Dispatcher [employer] EDMS Steve Benjamin, RN RN jb4 Bulmaro Tellez MD MD ma2 Bg Frederick mw2 Jose Joseph RN RN Oliver Ragsdale jp3 Israel Carrasco3 Leon Carrasco RN RN ll1
--- NOTE | 2020-12-21 00:31 | EDPHYS ---
Physician Documentation [facility] Name: Radha Mendez Age: 65 yrs Sex: Female : 1955 Arrival Date: 12/20/2020 Time: 20:08 Bed 14 Private MD: ED Physician Bulmaro Tellez HPI: 12/20 21:00 This 65 yrs old Female presents to ER via Ambulatory with complaints of High ma2 Blood Pressure. 21:00 The patient has elevated blood pressure and discovered this at home. Onset: The ma2 symptoms/episode began/occurred gradually, 1 day(s) ago. Associated signs and symptoms: Pertinent positives: Pertinent negatives: dyspnea, lightheadedness, weakness. Severity of symptoms: At its worst the blood pressure was moderate, in the emergency department the blood pressure is unchanged. The patient has not experienced similar symptoms in the past. Historical: - Allergies: 20:28 Codeine; ll1 20:28 Iodine; ll1 20:28 Latex, Natural Rubber; ll1 - PMHx: 20:28 a-fib; Hypertension; ll1 - PSHx: 20:28 ; ll1 - Immunization history:: Flu vaccine is up to date. - Social history:: Smoking status: Patient denies any tobacco usage or history of. Patient/guardian denies using alcohol, street drugs, The patient lives with family. - Family history:: not pertinent. ROS: 21:00 Constitutional: Negative for fever, chills, and weight loss. ma2 21:00 All other systems are negative. Exam: 21:00 Constitutional: This is a well developed, well nourished patient who is awake, alert, ma2 and in no acute distress. Head/Face: Normocephalic, atraumatic. Eyes: Pupils equal round and reactive to light, extra-ocular motions intact. Lids and lashes normal. Conjunctiva and sclera are non-icteric and not injected. Cornea within normal limits. Periorbital areas with no swelling, redness, or edema. ENT: Nares patent. No nasal discharge, no septal abnormalities noted. Tympanic membranes are normal and external auditory canals are clear. Oropharynx with no redness, swelling, or masses, exudates, or evidence of obstruction, uvula midline. Mucous membranes moist. Neck: Trachea midline, no thyromegaly or masses palpated, and no cervical lymphadenopathy. Supple, full range of motion without nuchal rigidity, or vertebral point tenderness. No Meningismus. Chest/axilla: Normal chest wall appearance and motion. Nontender with no deformity. No lesions are appreciated. Cardiovascular: Regular rate and rhythm with a normal S1 and S2. No gallops, murmurs, or rubs. Normal PMI, no JVD. No pulse deficits. Respiratory: Lungs have equal breath sounds bilaterally, clear to auscultation and percussion. No rales, rhonchi or wheezes noted. No increased work of breathing, no retractions or nasal flaring. Abdomen/GI: Soft, non-tender, with normal bowel sounds. No distension or tympany. No guarding or rebound. No evidence of tenderness throughout. Back: No spinal tenderness. No costovertebral tenderness. Full range of motion. Skin: Warm, dry with normal turgor. Normal color with no rashes, no lesions, and no evidence of cellulitis. MS/ Extremity: Pulses equal, no cyanosis. Neurovascular intact. Full, normal range of motion. Neuro: Awake and alert, GCS 15, oriented to person, place, time, and situation. Cranial nerves II-XII grossly intact. Motor strength 5/5 in all extremities. Sensory grossly intact. Cerebellar exam normal. Normal gait. Vital Signs: 20:25 Pulse 136; Resp 18; Temp 97.0; Pulse Ox 97% ; Weight 133.81 kg; Height 5 ft. 4 in. ll1 (162.56 cm); Pain 3/10; 20:30 rv 20:32 BP 128 / 98; mw2 21:20 BP 111 / 61; Pulse 115; Resp 19; Pulse Ox 96% on R/A; jb4 22:00 BP 105 / 75; Pulse 119; Resp 20; Pulse Ox 96% on R/A; jb4 23:00 BP 113 / 90; Pulse 113; Resp 25; Pulse Ox 97% on R/A; jb4 12/21 00:00 BP 102 / 80; Pulse 99; Resp 14; Pulse Ox 99% on R/A; jb4 00:30 BP 119 / 90; Pulse 111; Resp 18; Pulse Ox 98% on R/A; jb4 12/20 20:25 Body Mass Index 50.64 (133.81 kg, 162.56 cm) ll1 12/20 20:30 HR 70-140 in triage. rv 21:20 Provider notified of drop in b/p and HR. Received verbal order of 25mg of Lopressor PO, jb4 and to hold remaining IV doses. MDM: 20:32 Patient medically screened. or2 21:00 Differential diagnosis: htn, afib. tachycardia vs anxiety. [facility] 12/21 00:28 Data reviewed: vital signs, nurses notes. Counseling: I had a detailed discussion with [facility] the patient and/or guardian regarding: the historical points, exam findings, and any diagnostic results supporting the discharge/admit diagnosis, the presence of at least one elevated blood pressure reading (>120/80) during this emergency department visit, the need for outpatient follow up. Response to treatment: the patient's symptoms have markedly improved after treatment. 00:28 ED course: patient has mild tachycardia pulse is between 90 - 110 bpm.. she feels much [facility] better and would like to be discharged. i offered admission. she has appointment with dr. gallardo on Sunday . 12/20 20:34 Order name: Basic Metabolic Panel; Complete Time: 21:25 [facility] 12/20 20:34 Order name: CBC with Diff; Complete Time: 21:25 [facility] 12/20 20:34 Order name: LFT's; Complete Time: 21:25 [facility] 12/20 20:34 Order name: Magnesium; Complete Time: 21:25 [facility] 12/20 20:34 Order name: NT PRO-BNP; Complete Time: 21:25 [facility] 12/20 20:34 Order name: PT-INR; Complete Time: 21:25 [facility] 12/20 20:33 Order name: EKG; Complete Time: 20:34 12/20 20:34 Order name: Troponin (emerg Dept Use Only); Complete Time: 21:25 [facility] 12/20 20:34 Order name: XRAY Chest (1 view) [facility] 12/20 21:59 Order name: Troponin (emerg Dept Use Only): at 1030 pm [facility] 12/20 22:00 Order name: Troponin (Emerg Dept Use Only); Complete Time: 00:28 EDMS 12/20 20:34 Order name: Cardiac monitoring; Complete Time: 20:54 [facility] 02/08 20:34 Order name: EKG - Nurse/Tech; Complete Time: 20:55 ma2 12/20 20:34 Order name: IV Saline Lock; Complete Time: 20:55 ma2 12/20 20:34 Order name: Labs collected and sent; Complete Time: 20:55 ma2 12/20 20:34 Order name: O2 Per Protocol; Complete Time: 20:55 ma2 12/20 20:34 Order name: O2 Sat Monitoring; Complete Time: 20:54 ma2 Administered Medications: 12/20 21:04 Drug: Ativan 1 mg Route: IVP; Site: right antecubital; jb4 21:30 Follow up: Response: No adverse reaction; Marked relief of symptoms jb4 21:05 Drug: Metoprolol 5 mg Route: IVP; Site: right antecubital; jb4 21:15 Follow up: Response: No adverse reaction; Marked relief of symptoms jb4 21:30 Drug: Metoprolol 25 mg Route: PO; jb4 22:30 Follow up: Response: No adverse reaction; Marked relief of symptoms jb4 Disposition: 12/21/20 00:30 Discharged to Home. Impression: Essential (primary) hypertension. - Condition is Stable. - Discharge Instructions: Hypertension. - Medication Reconciliation Form, Thank You Letter, Antibiotic Education, Prescription Opioid Use form. - Follow up: Private Physician; When: Tomorrow; Reason: Continuance of care. Signatures: Dispatcher [employer] Steve Galeana RN RN jb4 Bulmaro Tellez MD MD ma2 Leon Carrasco RN RN ll1 Corrections: (The following items were deleted from the chart) 12/21 01:02 00:30 12/21/2020 00:30 Discharged to Home. Impression: Essential (primary) jb4 hypertension. Condition is Stable. Forms are Medication Reconciliation Form, Thank You Letter, Antibiotic Education, Prescription Opioid Use. Follow up: Private Physician; When: Tomorrow; Reason: Continuance of care. ma2
[2020-12-21 01:56] VITALS: TEMP 97
[2020-12-21 02:04] VITALS: BP 119/90; O2SAT 98
--- NOTE | 2020-12-21 07:35 | RAD REPORT ---
EXAM DESCRIPTION: Maycol Single View12/20/2020 8:57 pm CLINICAL HISTORY: Shortness of breath COMPARISON: 2019 FINDINGS: The lungs appear clear of acute infiltrate. The heart is mildly enlarged IMPRESSION: No acute abnormalities displayed
--- NOTE | 2020-12-21 18:42 | EKG ---
Test Date: 2020-12-20 Test Time: 20:41:40 Service Vehicle Operator: [place] MEASUREMENT RESULTS: Intervals: Rate: 128 ND: QRSD: 80 QT: 310 QTc: 452 [place]: P: ND: QRS: -49 T: 74 INTERPRETIVE STATEMENTS: Atrial fibrillation with rapid ventricular response with premature ventricular or aberrantly conducted complexes Left axis deviation Anteroseptal infarct, age undetermined Abnormal ECG Compared to ECG 02/04/2018 15:33:29 Left-axis deviation now present Sinus rhythm no longer present Myocardial infarct finding still present Electronically Signed On 12-21-20 18:40:18 UX ENGINEER by Dami Ruff
--- OUTSIDE RECORDS SUMMARY | 2020-12-22 02:19 | XMS REPORT | Continuity of Care Document ---
:1955 Author Organization [facility] t Address [address] [place] [address] Care Team Providers Name Role Phone Unavailable Unavailable Unavailable Problems This patient has no known problems. Allergies, Adverse Reactions, Alerts Allergy Allergy Status Severity Reaction(s) Onset Inactive Treating Comm ents Source Name Type Date Date Clinician Latex Adverse Active Info Not [facility] Reaction Available [facility] codeine Adverse Active Info Not [facility] Reaction Available [facility] Medications Ordered Filled Start Stop Current Ordering Indication Dosage Frequency Signature Comments Components Source Medication Medication Date Date Medication? Clinician (SIG) Name Name BusPIRone BusPIRone 2018- Yes Cher [address] [facility] HCl HCl 5-20 [facility] needed [facility]: [place] [id number] anxiety [facility] ent [facility] Immunizations Ordered Filled Immunization Date Status Comments Sourc e Immunization Name Name FLUZONE HIGH DOSE FLUZONE HIGH DOSE 2019-08-[address] [facility] - OVER 65 OVER 65 00:00:00 [facility] Flucelvax - Flucelvax - 2019-01-[address] [facility] - multidose vial multidose vial 00:00:00 [facility] Procedures This patient has no known procedures. Encounters Start End Encounter Admission Attending Care Care Encounter Source Date/Time Date/Time Type Type Clinicians Facility Department ID 2020-11-30 2020-11-30 Outpatient [facility] [id number] [facility] 2020-11-16 2020-11-16 Out[facility] [id number] [facility] 2020-11-11 2020-11-11 Out[facility] [id number] [facility] 2020-11-09 2020-11-09 Out[facility] [id number] [facility] 2020-09-06 2020[facility]09-06 [facility] [id number] [facility] 2020-08-09 2020-08-09 Out[facility] [id number] [facility] 2020-08-06 2020-08-06 [facility] [id number] [facility] 2020-04-14 2020-04-14 [facility] [id number] [facility] 13:42[facility]00 13:42:00 [facility] Outpat[facility] Clin[facility] 2020-01-28 2020-01-28 [facility] [id number] [facility] 08:[facility]00 08:00:00 [facility] Medicine Outpat[facility] Clinics 2019-10-30 2019-10-30 [facility] [id number] [facility] 08:15:00 08:15:00 [facility] Out[facility] Clin[facility] 2019-08-30 2019-08-30 [facility] [id number] [facility] 16:38:00 16:38:00 [facility]pat[facility] Clin[facility] 2019-08-21 2019-08-21 [facility] [id number] [facility] 16:00:00 16:00:00 [facility] Outpat[facility] ent Clin[facility] 2019-02-13 2019-02-13 [facility] [id number] [facility] 16[facility]00:00 16:00:00 [facility] Clin[facility] 2019-01-11 2019-01-11 [facility] [id number] [facility] 11[facility]26:00 11:26:00 [facility] 2019-01-08 2019-01-08 [facility] [id number] [facility] 15[facility]30:00 15:30:00 [facility] 2018-11-07 2018-11-07 [facility] [id number] [facility] 11:00:00 11:00:00 [facility] Clin[facility] 2018-08-13 2018-08-13 [facility] [id number] [facility] 16:15:00 16:15:00 [facility] Results This patient has no known results.
--- OUTSIDE RECORDS SUMMARY | 2020-12-22 02:19 | XMS REPORT ---
:1955 Author Organization [facility] Address [address] [place], [address] [place] [address] Care Team Providers Name Role Phone Ladonna Unavailable [phone] PROBLEMS Type Condition ICD9-CM [id number] Onset Condition SNOMED Code Notes Code Code Dates Status Problem Abnormal PFTs R94.2 Active [id number] 11/22/17> >> showing mild restrictio n. Problem S/P appendectomy Z90.49 Active 420971494 8. Problem Prediabetes R73.03 Active 558127387 Problem Seasonal allergic J30.2 Active 148965130 rhinitis, unspecified trigger Problem Pain in left knee M25.562 Active 59618778805668 2 Problem Pain in left hip M25.552 Active 96880865 Problem Pain in right hip M25.551 Active 14272821 Problem Depression, F32.9 Active 88533703 unspecified depression type Problem Other chronic pain G89.29 Active 46182833 Problem BMI 50.0-59.9, Z68.43 Active 802706079 adult Problem SHEELA (obstructive G47.33 Active 14235732 sleep apnea) Problem CPAP (continuous Z99.89 Active 121529481 positive airway pressure) dependence Problem Essential E78.1 Active 948306708 hypertriglyceridemi a Problem Morbid obesity E66.01 Active 838414024 Problem Abnormal renal R94.4 Active 556668741 function test Problem Grief F43.21 Active 307150523 Problem Pain in right knee M25.561 Active 50971384 Problem Personal history of Z87.19 Active 317794474 S/ p other diseases of umbili aga the digestive hernia system repair in 01/2018. Problem Hypertension, I10 Active 28492762 unspecified type Problem Anxiety F41.9 Active 31306480 Problem Atrial I48.91 Active 11619838 fibrillation, unspecified type Problem Shortness of breath R06.02 Active 593476624 Problem Paresthesias R20.2 Active 53362247 Located in both feet. ALLERGIES Allergen (clinical drug Drug/Non Drug Allergy Reaction Allergy Type Onset Date Status ingredient) documented on EMR codeine codeine Unknown Drug Allergy Active Latex Unknown Drug Allergy Active ENCOUNTERS from 1955 to 2020-11-30 Encounter Location Date Provider Diagnosis [facility] [place] [address] [place], Rocio Ladonna Hypertens ion, unspecified Drive [address] 2020 type I10 ; [facility] [place], [place] hypertriglyceri demia E78.1 [id number] ; Seasonal des rgic rhinitis, unspe cified trigger J30.2 ; Abnormal renal function test R94.4 ; Abnormal PFTs R 94.2 ; S/P appendectomy Z9 0.49 ; Personal histor y of other diseases of the digestive system Z87.19 ; Depression, unspecified dep ression type F32.9 ; Prediab etes R73.03 ; Other chronic pain G89.29 ; Pain in right knee M25.561 ; Pain in left knee M25.562 ; Pain in left hip M25.552 ; Pain in right hip M25.551 ; Morbi d obesity E66.01 ; BMI 50 .0-59.9, adult Z68.43 ; Anxiety F41.9 ; SHEELA (ob structive sleep apnea) G4 7.33 ; CPAP (continuous pos itive airway pressure) depen dence Z99.89 ; Paresthesias R20.2 ; Atrial fibrilla tion, unspecified typ e I48.91 ; Shortness of br eath R06.02 ; Abnormal bloo d level of uric acid E79.0 ; Grief F43.21 ; Acute pain of left shoulder M25.51 2 and Microalbuminuri a R80.9 IMMUNIZATIONS Vaccine Route Administration Date Status Flucelvax - multidose vial IM Intramuscular Jan 08, 2019 Admi nistered FLUZONE HIGH DOSE OVER 65 IM Intramuscular Aug 06, 2020 Admin istered FLUZONE HIGH DOSE OVER 65 IM Intramuscular Aug 21, 2019 Admin istered SOCIAL HISTORY Tobacco Use: Social History Observation Description Date Details (start date - stop date) Former Smoker Sex Assigned At : Social History Observation Description Sex Assigned At Unknown PHQ9 Question Answer Notes Little interest or pleasure in doing things More than half t he days Feeling down, depressed, or hopeless More than half the days Trouble falling or staying asleep or sleeping too much Sever al days Feeling tired or having little energy Several days Poor appetite or overeating Several days Feeling bad about yourself, or that you are a failure, Sever al days or have let yourself or your family down Trouble concentrating on things, such as reading the Several days newspaper or watching television Moving or speaking so slowly that other people could Several days have noticed; or the opposite, being so fidgety or restless that you have been moving around a lot more than usual Total Score 10 Interpretation Moderate Depression Thoughts that you would be better off or of Not at all hurting yourself in some way Tobacco Use/Smoking Question Answer Notes Are you a former smoker REASON FOR REFERRAL No Information VITAL SIGNS Height 64 in Nov, Weight 303.8 lbs Nov, Temperature 97.3 degrees Fahrenheit Nov, BMI 52.14 kg/m2 Nov, Oximetry 85 % Nov, Respiratory Rate 18 /min Nov, Blood pressure systolic 120 mm Hg Nov, Blood pressure diastolic 64 mm Hg Nov, MEDICATIONS Medication SIG (Take, Route, Notes Start Date End Date Status Frequency, Duration) Calcium Active Lexapro 10 MG 1 tablet Orally Once a Not-Taking day for 90 Tessalon Perles 100 MG 1 capsule as needed Dec, Not-Taking Orally Three times a day for cough for 5 Metoprolol Succinate ER 1 tablet Orally Once a 28 Jul, Not-Taking 25 MG day for 90 days ProAir RespiClick 108 2 puffs as needed Dec, Not-Taking (90 Base) MCG/ACT Inhalation every 6 hrs for 5 Metoprolol Succinate 25 1 capsule Orally Once Active mg a day Amlodipine Besylate 5 MG 1 tablet Orally Once a Active day BusPIRone HCl 7.5 MG 1 tablet as needed for Not-Taking anxiety Orally Twice a day Allopurinol 300 MG 1 tablet Orally Once a Active day for 90 days Gabapentin 300 MG as directed Orally 1 Active capsule in am; 1 capsule mid-day; and 2 capsules in pm; instructed to titrate up to TID BusPIRone HCl 5 MG 2 tablets Orally Twice Active a day for 30 days Xarelto 20 MG 1 tablet with food Act minnie Orally Once a day Furosemide 40 MG 1 tablet Orally Once a Active day Losartan Potassium 50 MG 1 tablet Orally Once a Active day Lexapro 20 mg 1 tablet Orally Once a Active day Fenofibrate 54 MG 1 tablet with food Active Orally Once a day for 90 days Albuterol Sulfate HFA 2 puffs as needed for Oct, Not-Taking 108 (90 Base) MCG/ACT sob/wheezing Inhalation every 4-6 hrs for 30 days Vitamin D-3 Active PROCEDURES No Information RESULTS No Results REASON FOR VISIT 2 wk f/u- BP check and f/u referral statuses of PT and pysch MEDICAL (GENERAL) HISTORY Type Description Date Medical History Seasonal allergic rhinitis, unspecified trigger Medical History Abnormal renal function test Medical History Abnormal PFTs Medical History S/P appendectomy Medical History Personal history of other diseases of th e digestive system Medical History Hypertension, unspecified type Medical History Depression, unspecified depression type Medical History Prediabetes Medical History Other chronic pain Medical History Pain in right knee Medical History Pain in left knee Medical History Pain in left hip Medical History Pain in right hip Medical History Morbid obesity Medical History Anxiety Medical History SHEELA (obstructive sleep apnea) Medical History CPAP (continuous positive airway pressur e) dependence Medical History Atrial fibrillation, unspecified type Medical History mammogram- Oct 2019 (BiRADS II), Oct 29 2020 (BiRADS II) Surgical History C sections x2 Surgical History Umbilical heniorrhaphy + appendectomy pe r Dr. Leo 02/05/18 Goals Section No Information Health Concerns No Information MEDICAL EQUIPMENT No Information MENTAL STATUS No Information FUNCTIONAL STATUS No Information ASSESSMENTS Encounter Date Diagnosis Assessment Treatment Notes Treatment Notes Clinical Notes Nov, Hypertension, improved, home unspecified type (ICD-10 readings meet go al - I10) of <140/90s elevated microalbumin with decreasing gfr continue current meds f/u cardio Maintain low salt DASH diet (avoid processed food and deli meat), excerise, weight loss and decrease stress recommended. Check BP at home once or ideally twice a day (around the same time). Discussed with patient how to properly check BP with feet flat on the floor, back with support and arm resting on table (near level of heart) and no talking for over a minute. Keep BP log with HR and will review with each encounter. If blood pressure consistently above 140/90, RTC for adjustment of med(s). --Try to quit smoking if you currently smoke. Decrease caffeine intake if possible. --Advised to avoid decongestants in otc sinus/cold meds which will vasconstrict blood vessels and make BP rise. Nov, Essential increased otc fish hypertriglyceridemia oil 1000 mg BID to (ICD-10 - E78.1) TID/ 4000 mg to devin low fat diet and excerise triglyercides over 300, will start medication (Fenofibrate) repeat again in 3 months Nov, Seasonal allergic stable on no m eds rhinitis, unspecified normal PE trigger (ICD-10 - J30.2) Nov, Abnormal renal function decreased GFR fro m test (ICD-10 - R94.4) 2019 and + microalbumineria noted elevated uric acid level on allopunriol 100 mg. will increase to 300 mg. consider another cause to be uncontrolled BP. patient does not check her BP at home since her passed. borderline in office. will monitor kidney function. Avoid NSAIDS. Drink plenty of fluids (at least 75 oz daily). Recommend low sodium, low carb and low protein diet. Advised on tight blood glucose and blood pressue control. Quit smoking and drinking EtOH if patient engages in such activities. If not controlled or gfr decreasing, consider nephrology referral. Nov, Abnormal PFTs (ICD-10 - 11/22/17>>>show hold off on rep eat R94.2) ing mild PFT due to current restriction. CXR findings and pt's recent grie f may be cause of SOB lungs CTAB today Nov, S/P appendectomy (ICD-10 01/2018. stable on no med s - Z90.49) Nov, Personal history of S/p umbilical stable other diseases of the hernia repair digestive system (ICD-10 in 01/2018. - Z87.19) Nov, Depression, unspecified see grief section depression type (ICD-10 for more detail - F32.9) pt will state on current dose of lexapro due 1) it takes up to 6 weeks to see the full effect on a new dose of lexapro, 2) grief is temp and she has done well on current dose up till recently referral was cancelled, states she will try to find online counseling or online group counseling for grief. she agrees and understands current plan of care Nov, Prediabetes (ICD-10 - improved from 6.2 t o R73.03) 6.1 low carb 1800 ADA diet. Avoid sodas, juices, procressed food, and food with refined carbs. Remember portion control. Exercise routinely (150 mins a week per [place] [employer]). Drink plenty of water. will repeat A1C today. Goal is to keep A1C under 6.5 and ideally, will be no longer preDM if A1C is under 5.7. Nov, Other chronic pain secondary to OA (ICD-10 - G89.29) per pt, controlled after PT rx allopunriol as well (consider underlying gout) Nov, Pain in right knee as above (ICD-10 - M25.561) Nov, Pain in left knee as above (ICD-10 - M25.562) Nov, Pain in left hip (ICD-10 as above - M25.552) Nov, Pain in right hip as above (ICD-10 - M25.551) Nov, Morbid obesity (ICD-10 - patient is tryin g to E66.01) excerise, but her left knee pain does not enable her to excerise. Referral to PT given as above discussed low fat, low carb, low sodium, low purine diet Nov, BMI 50.0-59.9, adult as above (ICD-10 - Z68.43) Nov, Anxiety (ICD-10 - F41.9) denies any si or hi Nov, SHEELA (obstructive sleep stable on CPAP apnea) (ICD-10 - G47.33) f/u pulm Nov, CPAP (continuous pt could not recall positive airway her settings pressure) dependence (ICD-10 - Z99.89) Nov, Paresthesias (ICD-10 - Located in stable on current R20.2) both feet. med Nov, Atrial fibrillation, f/u cardio unspecified type (ICD-10 - I48.91) Nov, Shortness of breath abnormal CXR ordered (ICD-10 - R06.02) from cardio started on lasix 40 mg will have further workup as well with cardio also recommend PFTs once cardiac workup is completed, but will hold off due to pt's passing away Nov, Abnormal blood level of elevated uric aci d uric acid (ICD-10 - on the 100 mg of E79.0) allopunriol. consider cause or contributation to abnormal gfr and chronic pain pt denies any symptpoms of gout (denies joint swelling or erythema) Nov, Grief (ICD-10 - F43.21) lost her due to cancer since last encounter, she now has lost her pet started low dose buspar as needed (already on lexapro). recommend to increase to 10 mg pt is interested in counseling as we ll referral was cancelled. she states she will try online services Nov, Acute pain of left improving per pt shoulder (ICD-10 - but she is M25.512) interested in PT had one visit with PT, but felt PT was more interested in making money then taking care of her. she states she will try to find excerises online. showed her "[employer]" youtube channel as a good source for excerises. recommend to be careful and caution when doing excerises. consider rotator cuff injury given hx and PE findings Nov, Microalbuminuria (ICD-10 as ment ioned above - R80.9) worsening kidney function with questionable uncontrolled HTN and persistent elevated uric acid levels repeat again in 3 months Nov, Other -- Medication(s) reviewed and updated. Dietary and lifestyle modifications discussed with aptient regarding low fat, low carb, low sodium/salt diet, excerise and weight managemen t. -- Treatment options, risks and benefits, side effects reviewed in detail. patient accepts risk. -- Advised on signs/symptoms to monitor and when to call clinic and/or visit the nearest ED. Patient verbalized understanding and agreed with plan of care. -- Greater than 30 mins was spent with the patient during this encounter, of which over 50% of the time was spent counseling and coordinating care including but not limited to discussion of test results, diagnostic or treatment recommendations, prognosis, risks and benefits of management options, instructions, education, compliance and or risk reduction. -- Take med(s) as directed. All risks, benefits and side effects were discussed. All questions and concerns were addressed. BiRADS II last year in Oct 2019 and in Oct 2020 PLAN OF TREATMENT Medication Medication Name Sig Start Date Stop Date Allopurinol 300 MG 1 tablet Orally Once a day for 90 days Fenofibrate 54 MG 1 tablet with food Orally Once a day for 90 days Metoprolol Succinate 25 mg 1 capsule Orally Once a day Vitamin D-3 Amlodipine Besylate 5 MG 1 tablet Orally Once a day Calcium Furosemide 40 MG 1 tablet Orally Once a day Lexapro 20 mg 1 tablet Orally Once a day Losartan Potassium 50 MG 1 tablet Orally Once a day Xarelto 20 MG 1 tablet with food Orally Once a day Gabapentin 300 MG as directed Orally 1 capsule in am; 1 capsule mid-day; and 2 capsules in pm; instructed to titrate up to TID BusPIRone HCl 5 MG 2 tablets Orally Twice a day for 30 days Treatment Notes Assessment Notes Clinical Notes Pain in right hip as above Pain in left hip as above BMI 50.0-59.9, adult as above Morbid obesity patient is trying to excerise, but her left knee pain does not enable her to excerise. Referral to PT given as abovediscussed low fat, low carb, low sodium, low purine diet SHEELA (obstructive sleep apnea) stable on CPAPf/u pulm Anxiety denies any si or hi Paresthesias stable on current med CPAP (continuous positive airway pt could not recall her set tings pressure) dependence Pain in left knee as above Pain in right knee as above Acute pain of left shoulder improving per ptbut she is interested in PThad one visit with PT, but felt PT was more interested in making money then taking care of her. she states she will try to find excerises online. showed her "[employer]" youtube channel as a good source for excerises. recommend to be careful and caution when doing excerises. consider rotator cuff injury given hx and PE findings Hypertension, unspecified type improved, home readings meet goal of <140/90selevated microalbumin with decreasing gfrcontinue current medsf/u cardioMaintain low salt DASH diet (avoid processed food and deli meat), excerise, weight loss and decrease stress recommended. Check BP at home once or ideally twice a day (around the same time). Discussed with patient how to properly check BP with feet flat on the floor, back with support and arm resting on table (near level of heart) and no talking for over a minute. Keep BP log with HR and will review with each encounter. If blood pressure consistently above 140/90, RTC for adjustment of med(s). --Try to quit smoking if you currently smoke. Decrease caffeine intake if possible. --Advised to avoid decongestants in otc sinus/cold meds which will vasconstrict blood vessels and make BP rise. Grief lost her due to cancersince last encounter, she now has lost her petstarted low dose buspar as needed (already on lexapro). recommend to increase to 10 mgpt is interested in counseling as wellreferral was cancelled. she states she will try online services Essential hypertriglyceridemia increased otc fish oil 1000 m g BID to TID/ 4000 mg totallow fat diet and excerisetriglyercides over 300, will start medication (Fenofibrate)repeat again in 3 months Seasonal allergic rhinitis, stable on no medsnormal PE unspecified trigger Microalbuminuria as mentioned aboveworsening kidney function with questionable uncontrolled HTN and persistent elevated uric acid levelsrepeat again in 3 months Abnormal renal function test decreased GFR from 2019 and + microalbuminerianoted elevated uric acid level on allopunriol 100 mg. will increase to 300 mg.consider another cause to be uncontrolled BP. patient does not check her BP at home since her passed. borderline in office.will monitor kidney function. Avoid NSAIDS. Drink plenty of fluids (at least 75 oz daily). Recommend low sodium, low carb and low protein diet. Advised on tight blood glucose and blood pressue control. Quit smoking and drinking EtOH if patient engages in such activities. If not controlled or gfr decreasing, consider nephrology referral. Abnormal PFTs hold off on repeat PFT due to current CXR findings and pt's recent griefmay be cause of SOBlungs CTAB today S/P appendectomy stable on no meds Personal history of other diseases stable of the digestive system Atrial fibrillation, unspecified f/u cardio type Abnormal blood level of uric acid elevated uric acid on the 100 mg of allopunriol. consider cause or contributation to abnormal gfr and chronic pain pt denies any symptpoms of gout (denies joint swelling or erythema) Shortness of breath abnormal CXR ordered from cardiostarted on lasix 40 mgwill have further workup as well with cardioalso recommend PFTs once cardiac workup is completed, but will hold off due to pt's passing away Depression, unspecified depression see grief section for mor e detailpt type will state on current dose of lexapro due 1) it takes up to 6 weeks to see the full effect on a new dose of lexapro, 2) grief is temp and she has done well on current dose up till recentlyreferral was cancelled, states she will try to find online counseling or online group counseling for grief. she agrees and understands current plan of care Prediabetes improved from 6.2 to 6.1low carb 1800 ADA diet. Avoid sodas, juices, procressed food, and food with refined carbs. Remember portion control. Exercise routinely (150 mins a week per [place] [employer]). Drink plenty of water. will repeat A1C today. Goal is to keep A1C under 6.5 and ideally, will be no longer preDM if A1C is under 5.7. Other chronic pain secondary to OAper pt, controlled after PTrx allopunriol as well (consider underlying gout) Next Appt Details 3 Months Reason:3 month f/u Provider Name:Alissa Geiger, 2021-02-28 02:0 0:00 PM, [address], [place], [address], Follow Up:3 Months3 month f/u Insurance Providers Payer Name Payer Payer Insured Patient Coverage Coverage End Address Phone Name Relationship to Start Date Aime e Insured [phone] Yi Mendez [facility] [address] [facility] [address] [place] [phone]
== END 2020-12-21 01:02 | disposition home or self-care (01) ==
LOC: ER 20:07
DX: I10 Essential (primary) hypertension (principal); I48.91 Unspecified atrial fibrillation; Z88.5 Allergy status to narcotic agent; Z91.040 Latex allergy status; Z91.048 Other nonmedicinal substance allergy status
CPT/HCPCS: 36415; 71045; 80048; 80076; 83735; 83880; 84484; 85025; 85610; 93005; 96374; 96375; 99285

== ENCOUNTER 2020-12-24 06:36 | Day surgery (SDC) | payer OTHER ==
[2020-12-23 09:50] VITALS: BMI 50.6
[2020-12-23 11:04] LABS: Protime INR 1.42
[2020-12-24] MEDS ORDERED: NA CHLORIDE 0.9% 500 ML ONE ×3 (07:13→09:42)
[2020-12-24] MEDS ORDERED: MIDAZOLAM HCL 10 ML ONE (07:48)
[2020-12-24] MEDS ORDERED: FLUMAZENIL 0.1 MG/ML (5 mL VIAL) IV ONE (07:48)
[2020-12-24] MEDS ORDERED: MIDAZOLAM HCL 2 MG/2 ML INJ ONE (08:10)
[2020-12-24 09:02] VITALS: TEMP 96
[2020-12-24 10:18] VITALS: BP 96/41; O2SAT 98
--- NOTE | 2020-12-24 12:01 | OP ---
Date of Procedure: 12/24/2020 Surgeon: Dami Ruff MD Vp Of Customer Experience Strategy: Elayne Joyner. Procedure Performed: Direct current cardioversion. Indication: Atrial fibrillation with rapid ventricular response that is symptomatic. Description Of Procedure: The patient was brought to the hospital as an outpatient. She was brought to the bed laborer. She was given a total of 12 mg of Versed IV push for sedation. One shock of 200 j oules converted the patient from atrial fibrillation to sinus bradycardia. The patient tolerated the procedure well. She had some issues with hypotension prior to and after the cardioversion. Her Kaiden sed was reversed successfully. She was hydrated with IV bolus normal saline. She was asymptomatic, in sinus rhythm. There were no complications or blood loss. Postoperative Diagnosis: Atrial fibrillation, status post successful direct current cardioversion to sinus rhythm. Plan: To stop her metoprolol, put her on Multaq 400 mg 1 p.o. b.i.d. Continue Xarelto and she will see me in the office in the next 2 weeks. Anesthesia: Total conscious sedation was 30 minutes. MAURICE/KYREE Voice ID: [id number] Report ID: [id number]
--- NOTE | 2020-12-26 07:57 | EKG ---
Test Date: 2020-12-24 Test Time: 08:09:37 Windshield Repair Technician: Kyung Momin MEASUREMENT RESULTS: Intervals: Rate: 51 [place]: 166 QRSD: 86 QT: 440 QTc: 405 [place]: P: 65 [place]: 166 QRS: -6 T: 2 INTERPRETIVE STATEMENTS: Sinus bradycardia with marked sinus arrhythmia Cannot rule out Anterior infarct, age undetermined Abnormal ECG Compared to ECG 12/20/2020 20:41:40 Atrial fibrillation no longer present Ventricular premature complex(es) no longer present Left-axis deviation no longer present Myocardial infarct finding still present Electronically Signed On 12-26-20 07:53:36 DEPARTMENT DIRECTOR by Dami Ruff
== END 2020-12-24 10:21 | disposition home or self-care (01) ==
LOC: CCL 06:36
DX: I48.91 Unspecified atrial fibrillation (principal)
CPT/HCPCS: 93005; 36415; 85610; 85730; 92960; J2250 ×2; J7040 ×3

== ENCOUNTER 2023-09-05 10:30 | Day surgery (SDC) | payer OTHER ==
[2023-08-31 14:59] LABS: Absolute Lymphocytes (CBC) 2.5 K/uL (0.7-4.9); Hematocrit 43.9 % (36.0-45.0); Lymphocytes % 31.5 % (15.3-44.8); MCV 87.5 fL (80-100); MPV 8.4 fL (7.6-11.3); Platelets 242 thou/uL (152-406); RBC Red Blood Cell Count 5.02 M/uL (3.86-4.86)
[2023-08-31 15:09] LABS: Protime INR 1.2
[2023-08-31 15:10] LABS: Potassium 4.7 mEq/L (3.5-5.1)
[2023-09-05] MEDS ORDERED: NA CHLORIDE 0.9% 500 ML ONE (10:57)
[2023-09-05] MEDS ORDERED: propofoL 200 MG/20 ML VIAL IV ONE (11:14)
[2023-09-05] MEDS ORDERED: ATROPINE SULF 1 MG/10 ML SYR IV ONE (11:14)
[2023-09-05] MEDS ORDERED: METOPROLOL TARTRATE 5 MG/5 ML INJ IV ONE (11:14)
[2023-09-05] MEDS ORDERED: LIDOCAINE 2% MPF 5 ML VIAL ONE (11:16)
--- NOTE | 2023-09-05 14:23 | TEE ---
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 TRANSESOPHAGEAL ECHOCARDIOGRAM PROBE INSERTED, NO DIFFICULTY 2. NO LEFT ATRIAL APPEANDAGE THROMBUS 3. NORMAL LEFT VENTRICULAR EJECTION FRACTION 55-60% TECHNOLOGIST: ZACH MCRAE
--- NOTE | 2023-09-05 14:45 | OP ---
Date of Procedure: 09/05/2023 Surgeon: KATT GILLILAND Procedures Performed: 1.Transesophageal echocardiogram. 2.Electric cardioversion using 200 joules and 300 joules consecutively in synchronized fashion. Indication: Atrial fibrillation. Description Of Procedure: After risks, benefits, alternatives were explained, patient agreed to proc edure and signed informal consent. Patient was brought into OR 5 and propofol was administered by An esthesia and then HECTOR probe was inserted. There was no left atrial appendage thrombosis seen. Then, synchronized 200 joules electrical cardioversion was done, failed to convert to sinus rhythm, then u pgraded to 300 joules in synchronized fashion and she converted to sinus rhythm. Conclusion: Successful HECTOR-guided cardioversion. Plan: Continue home medications. Follow up with me in the office in 1 week. SR/KYREE Voice ID: [id number] Report ID: [id number]
[2023-09-06 15:50] VITALS: BP 103/61; O2SAT 100
--- NOTE | 2023-09-07 15:50 | EKG ---
Test Date: 2023-09-05 Test Time: 11:39:16 Education Courses Sales Representative: GLORIA MEASUREMENT RESULTS: Intervals: Rate: 52 [place]: 178 QRSD: 98 QT: 432 QTc: 401 [place]: P: -41 NE: 178 QRS: -24 T: 36 INTERPRETIVE STATEMENTS: Unusual P axis, possible ectopic atrial bradycardia with premature atrial complexes Septal infarct, age undetermined Abnormal ECG Compared to ECG 08/01/2023 12:09:50 Atrial fibrillation no longer present Left-axis deviation no longer present Myocardial infarct finding still present Electronically Signed On 09-07-23 15:44:02 CDT by Russ Young
== END 2023-09-05 12:45 | disposition home or self-care (01) ==
LOC: CCL 10:30
PROVIDERS: ATTEND Internal Medicine
DX: I48.91 Unspecified atrial fibrillation (principal); I10 Essential (primary) hypertension; I51.7 Cardiomegaly; Z87.891 Personal history of nicotine dependence; Z79.899 Other long term (current) drug therapy; Z88.5 Allergy status to narcotic agent; Z88.8 Allergy status to other drugs, medicaments and biological substances; Z91.040 Latex allergy status
CPT/HCPCS: 93005; 93312; 85025; 80048; 36415; 85610; 85730; 92960; J2704; J2001; J7040; J0461

== ENCOUNTER 2023-09-10 08:57 | Emergency (ER) | payer OTHER ==
--- OUTSIDE RECORDS SUMMARY | 2023-09-10 09:03 | XMS REPORT | Continuity of Care Document ---
:1955 Author Organization [facility] t Address [address] [place] [address] Care Team Providers Name Role Phone Maira Cornejo Attending Clinician Unavailable Alissa Geiger Attending Clinician Unavailable Rocio Dougherty Attending Clinician Unavailable Cher Gilliland Attending Clinician Unavailable Payers Payer Name Policy Type Policy Number Effective Date Expiration Date S lauren [facility] [employer] 1 [id number] 2021 Common TRS/ERS MCR PPO 00:00:00 [facility] Problems Condition Condition Condition Status Onset Resolution Last Treating Co mments Source Name Details Category Date Date Treatment Clinician Date [id number] Stage 3a Problem Comm on chronic Spirit kidney - CHI disease [facility] [id number] Mild Problem Common chronic Spirit obstructiv - [facility] e [facility] [id number] Psoriasis Problem Commo n Spirit - [facility] [id number] Primary Problem Comm on osteoarthr Spirit itis of - [facility] left knee [facility] [id number] Stage 3b Problem Comm on chronic Spirit kidney - [facility] disease ([facility] [id number] Seasonal Problem Comm on allergic Spirit rhinitis, - CHI unspecifie [facility] [id number] Abnormal Problem Comm on renal Spirit function - [facility] test [facility] [id number] Pain in Problem Common left hip Spirit [facility] [id number] Hypertensi Problem Co mmon ve crisis [facility] [id number] Pure Problem Common hyperchole Spirit sterolemia - [facility] [id number] Memory Problem Common changes [facility] [id number] Prediabete Problem Co mmon s Spirit [facility] [id number] Other Problem Common chronic Spirit pain [facility] [id number] [place] [id number] left knee [facility] [id number] Pain in Problem Common right knee [facility] [id number] Depression Problem Com mon , Spirit unspecifie - CHI d [facility] [id number] Abnormal Problem Comm on PFTs [facility] [id number] SHEELA Problem Common (obstructi Spirit ve sleep - CHI apnea) [facility] [id number] CPAP Problem Common (continuou Spirit s positive - CHI airway St pressure) [facility] [id number] Anxiety Problem Common Spirit [facility] Grief Grief Problem Common [facility] [id number] Severe Problem Common obesity [facility] (BMI >= - CHI 40) [facility] [id number] Hypertensi Problem Com mon on, Spirit unspecifie - CHI d [facility] [id number] Arthritis Problem Co mmon [id number] of right Spirit knee [facility] [id number] Morbid Problem Common obesity [facility] [id number] Personal Problem Comm on history of Spirit other - [facility] diseases [facility] [id number] S/P Problem Common appendecto Spirit my - [facility] [id number] Atrial Problem Common fibrillati Spirit on, - CHI unspecifie d [facility] [id number] Shortness Problem Com mon of breath [facility] [id number] Paresthesi Problem Com mon as Spirit [facility] Pure Essential Problem Common hyperglyce hypertrigl Sp monica ridemia yceridemia - [facility] Allergies, Adverse Reactions, Alerts Allergy Allergy Status Severity Reaction(s) Onset Inactive Treating Comm ents Source Name Type Date Date Clinician 463 Drug Active rash Common allergy [facility] Latex Latex Active Unknown [facility] Codeine Codeine Active Unknown [facility] Social History Social Habit Start Date Stop Date Quantity Comments Source History of Tobacco Use Co mmon [facility] Sex Assigned At Com mon [facility] Smoking Status Start Date Stop Date Source Former Smoker 2023-08-16 00:00:00 2023-08-16 00:00:00 [facility] Medications Ordered Filled Start Stop Current Ordering Indication Dosage Frequency Signature Comments Components Source Medication Medication Date Date Medication? Clinician (SIG) Name Name Rosuvastati Rosuvastati 2022-11 No 1{table QD Rosuvastat n Calcium n Calcium 0-05 t} in Calcium 10 MG 10 MG 00:00: 10 MG 00 Rosuvastati Rosuvastati 2022-11 No 1{table QD Rosuvastat n Calcium n Calcium 0-05 t} in Calcium 10 MG 10 MG 00:00: 10 MG 00 Rosuvastati Rosuvastati 2022-11 No 1{table QD Rosuvastat n Calcium n Calcium 0-05 t} in Calcium 10 MG 10 MG 00:00: 10 MG 00 buPROPion buPROPion No 1{table QD buPROPion HCl ER (XL) HCl ER (XL) 6-15 t_in_th HCl ER 300 MG 300 MG 00:00: e_morni (XL) 300 00 ng} MG buPROPion buPROPion No 1{table QD buPROPion HCl ER (XL) HCl ER (XL) 6-15 t_in_th HCl ER 150 MG 150 MG 00:00: e_morni (XL) 150 00 ng} MG buPROPion buPROPion No 1{table QD buPROPion HCl ER (XL) HCl ER (XL) 6-15 t_in_th HCl ER 300 MG 300 MG 00:00: e_morni (XL) 300 00 ng} MG buPROPion buPROPion No 1{table QD buPROPion HCl ER (XL) HCl ER (XL) 6-15 t_in_th HCl ER 150 MG 150 MG 00:00: e_morni (XL) 150 00 ng} MG buPROPion buPROPion 3-0 No 1{table QD buPROPion HCl ER (XL) HCl ER (XL) 6-15 t_in_th HCl ER 300 MG 300 MG 00:00: e_morni (XL) 300 00 ng} MG buPROPion buPROPion 3-0 No 1{table QD buPROPion HCl ER (XL) HCl ER (XL) 6-15 t_in_th HCl ER 150 MG 150 MG 00:00: e_morni (XL) 150 00 ng} MG Synvisc Synvisc 3-0 No 2mL Common 5-22 Spirit 00:00: - [facility]I 00 [facility] Synvisc Synvisc 3-0 No 2mL Common 5- Spirit 00:00: - [facility]I 00 [facility] Synvisc Synvisc 3-0 No 2mL Common - Spirit 00:00: - [facility] Synvisc Synvisc 3-0 No 2mL Common 5-15 Spirit 00:00: - [facility]I 00 [facility] Synvisc Synvisc 3-0 No 2mL Common 5-15 Spirit 00:00: - CHI 00 [facility] Synvisc Synvisc 3-0 No 2mL Common 5-15 Spirit 00:00: - CHI 00 [facility] Kenalog Kenalog 3-0 No 4mL Common (Triamcinol (Triamcinol 5-08 S pirit one) one) 00:00: - CHI 00 [facility] Bupivicaine Bupivicaine 3-0 No 1mL Common Kennerdell Kennerdell 5-08 Spirit 00:00: - [facility] Synvisc Synvisc 3-0 No 2mL Common 5-08 Spirit 00:00: - CHI 00 [facility] Kenalog Kenalog 3-0 No 4mL Common (Triamcinol (Triamcinol 5-08 S pirit one) one) 00:00: - CHI 00 [facility] Bupivicaine Bupivicaine 3-0 No 1mL Common Kennerdell Kennerdell 5-08 Spirit 00:00: - CHI 00 [facility] Synvisc Synvisc 0 No 2mL Common 5-08 Spirit 00:00: - CHI 00 [facility] Kenalog Kenalog 0 No 4mL Common (Triamcinol (Triamcinol 5-08 S pirit one) one) 00:00: - CHI 00 [facility] Bupivicaine Bupivicaine 0 No 1mL Common Kennerdell Kennerdell 5-08 Spirit 00:00: - CHI 00 [facility] Synvis Synvisc 0 No 2mL Common 5-08 Spirit 00:00: - CHI 00 [facility] Kenalog Kenalog 2021-11 No 40mg Common (Triamcinol (Triamcinol 0-25 S pirit one) one) 00:00: - CHI 00 [facility] Bupivicaine Bupivicaine 2021-11 No 2.5mg Common Kennerdell Kennerdell 0-25 Spirit 00:00: - CHI 00 [facility] Kenalog Kenalog 2021-11 No 40mg Common (Triamcinol (Triamcinol 0-25 S pirit one) one) 00:00: - CHI 00 [facility] Bupivicaine Bupivicaine 2021-11 No 2.5mg Common Kennerdell Kennerdell 0-25 Spirit 00:00: - CHI 00 [facility] Kenalog Kenalog 2021-11 No 40mg Common (Triamcinol (Triamcinol 0-25 S pirit one) one) 00:00: - CHI 00 [facility] Bupivicaine Bupivicaine 2021-11 No 2.5mg Common Kennerdell Kennerdell 0-25 Spirit 00:00: - CHI 00 [facility] Kenalog Kenalog 2021-11 No 40mg Common (Triamcinol (Triamcinol 0-25 S pirit one) one) 00:00: - CHI 00 [facility] Bupivicaine Bupivicaine 2021-11 No 2.5mg Common Kennerdell Kennerdell 0-25 Spirit 00:00: - CHI 00 [facility] Kenalog Kenalog 2021-11 No 40mg Common (Triamcinol (Triamcinol 0-25 S pirit one) one) 00:00: - CHI 00 [facility] Bupivicaine Bupivicaine 2021-1 No 2.5mg Common Kennerdell Kennerdell 0-25 Spirit 00:00: - CHI 00 [facility] Kenalog Kenalog 2021-1 No 40mg Common (Triamcinol (Triamcinol 0-25 S pirit one) one) 00:00: - CHI 00 [facility] Bupivicaine Bupivicaine 2021-1 No 2.5mg Common Kennerdell Kennerdell 0-25 Spirit 00:00: - CHI 00 [facility] Kenalog Kenalog 2021-0 No 40mg Common (Triamcinol (Triamcinol 7-12 S pirit one) one) 00:00: - CHI 00 [facility] Bupivicaine Bupivicaine 2021-0 No 2.5mg Common Kennerdell Kennerdell 7-12 Spirit 00:00: - CHI 00 [facility] Kenalog Kenalog 2021-0 No 40mg Common (Triamcinol (Triamcinol 7-12 S pirit one) one) 00:00: - CHI 00 [facility] Bupivicaine Bupivicaine 2021-0 No 2.5mg Common Kennerdell Kennerdell 7-12 Spirit 00:00: - CHI 00 [facility] Kenalog Kenalog 2021-0 No 40mg Common (Triamcinol (Triamcinol 7-12 S pirit one) one) 00:00: - CHI 00 [facility] Bupivicaine Bupivicaine 2021-0 No 2.5mg Common Kennerdell Kennerdell 7-12 Spirit 00:00: - CHI 00 [facility] Kenalog Kenalog 2021-0 No 40mg Common (Triamcinol (Triamcinol 7-12 S pirit one) one) 00:00: - CHI 00 [facility] Bupivicaine Bupivicaine 2021-0 No 2.5mg Common Kennerdell Kennerdell 7-12 Spirit 00:00: - CHI 00 [facility] Kenalog Kenalog 2021-0 No 40mg Common (Triamcinol (Triamcinol 7-12 S pirit one) one) 00:00: - CHI 00 [facility] Bupivicaine Bupivicaine 2021-0 No 2.5mg Common Kennerdell Kennerdell 7-12 Spirit 00:00: - CHI 00 [facility] Kenalog Kenalog 2021-0 No 40mg Common (Triamcinol (Triamcinol 7-12 S pirit one) one) 00:00: - [facility] Bupivicaine Bupivicaine 2021-0 No 2.5mg Common Kennerdell Kennerdell 7-12 Spirit 00:00: - CH[facility] Kenalog Kenalog 2021-0 No 40mg Common (Triamcinol (Triamcinol 7-12 S pirit one) one) 00:00: - CHI 00 [facility] Bupivicaine Bupivicaine 2021-0 No 2.5mg Common Kennerdell Kennerdell 7-12 Spirit 00:00: - [facility] Kenalog Kenalog 2021-0 No 40mg Common (Triamcinol (Triamcinol 7-12 S pirit one) one) 00:00: - [facility] Bupivicaine Bupivicaine 2021-0 No 2.5mg Common Kennerdell Kennerdell 7-12 Spirit 00:00: - [facility] Kenalog Kenalog 0 No 40mg Common (Triamcinol (Triamcinol 7-12 S pirit one) one) 00:00: - [facility] Bupivicaine Bupivicaine 2021-0 No 2.5mg Common Kennerdell Kennerdell 7-12 Spirit 00:00: - [facility] Albuterol Albuterol 2021-0 No 2{puffs Albuterol Sulfate HFA Sulfate HFA 5-24 } Sulfate 108 (90 108 (90 00:00: HFA 108 Base) Base) 00 (90 Base) MCG/ACT MCG/ACT MCG/ACT Fluocinonid Fluocinonid 2020-11- No 1{appli BID Fluocinoni e 0.05 % e 0.05 % 025 12-23 cation} de 0.05 % 00:00: 00:00 00 :00 Bupivicaine Bupivicaine 1 No Common Kennerdell Kennerdell 0-04 Spirit 00:00: - [facility] Kenalog Kenalog 2020-11 No 40mg Common (Triamcinol (Triamcinol 0-04 S pirit one) one) 00:00: - CHI 00 [facility] Bupivicaine Bupivicaine 2020-11 No Common Kennerdell Kennerdell 0-04 Spirit 00:00: - CHI 00 [facility] Kenalog Kenalog 2020-11 No 40mg Common (Triamcinol (Triamcinol 0-04 S pirit one) one) 00:00: - CHI 00 [facility] Bupivicaine Bupivicaine 2020-11 No 2.5mg Common Kennerdell Kennerdell 0-04 Spirit 00:00: - CHI 00 [facility] Kenalex Kenalog 2020-11 No 40mg Common (Triamcinol (Triamcinol 0-04 S pirit one) one) 00:00: - CHI 00 [facility] Bupivicaine Bupivicaine 2020-11 No 2.5mg Common Kennerdell Kennerdell 0-04 Spirit 00:00: - CHI 00 [facility] Kenalex Kenalog 2020-11 No 40mg Common (Triamcinol (Triamcinol 0-04 S pirit one) one) 00:00: - CHI 00 [facility] Bupivicaine Bupivicaine 2020-11 No 2.5mg Common Kennerdell Kennerdell 0-04 Spirit 00:00: - CHI 00 [facility] Kenalex Kenalog 2020-11 No 40mg Common (Triamcinol (Triamcinol 0-04 S pirit one) one) 00:00: - CHI 00 [facility] Bupivicaine Bupivicaine 2020-11 No 2.5mg Common Kennerdell Kennerdell 0-04 Spirit 00:00: - CHI 00 [facility] Kenalog Kenalog 2020-11 No 40mg Common (Triamcinol (Triamcinol 0-04 S pirit one) one) 00:00: - CHI 00 [facility] Bupivicaine Bupivicaine 2020-11 No 2.5mg Common Kennerdell Kennerdell 0-04 Spirit 00:00: - CHI 00 [facility] Kenalog Kenalog 2020-11 No 40mg Common (Triamcinol (Triamcinol 0-04 S pirit one) one) 00:00: - CHI 00 [facility] Bupivicaine Bupivicaine 2020-11 No 2.5mg Common Kennerdell Kennerdell 0-04 Spirit 00:00: - CHI 00 [facility] Marilou Kenalog 2020-11 No 40mg Common (Triamcinol (Triamcinol 0-04 S pirit one) one) 00:00: - CHI 00 [facility] Bupivicaine Bupivicaine 2020-11 No 2.5mg Common Kennerdell Kennerdell 0-04 Spirit 00:00: - CHI 00 [facility] Marilou Kenalog 2020-11 No 40mg Common (Triamcinol (Triamcinol 0-04 S pirit one) one) 00:00: - CHI 00 [facility] Bupivicaine Bupivicaine 2020-11 No 2.5mg Common Kennerdell Kennerdell 0-04 Spirit 00:00: - CHI 00 [facility] Marilou Smithalog 2020-11 No 40mg Common (Triamcinol (Triamcinol 0-04 S pirit one) one) 00:00: - CHI 00 [facility] Bupivicaine Bupivicaine 2020-11 No 2.5mg Common Kennerdell Kennerdell 0-04 Spirit 00:00: - CHI 00 [facility] Marilou Kenalog 2020-11 No 40mg Common (Triamcinol (Triamcinol 0-04 S pirit one) one) 00:00: - CHI 00 [facility] Bupivicaine Bupivicaine 2020-11 No 2.5mg Common Kennerdell Kennerdell 0-04 Spirit 00:00: - CHI 00 [facility] Marilou Kenalog 2020-11 No 40mg Common (Triamcinol (Triamcinol 0-04 S pirit one) one) 00:00: - CHI 00 [facility] Bupivicaine Bupivicaine 2020-0 No Common Kennerdell Kennerdell 5-17 Spirit 00:00: - CHI 00 [facility] Marilou Kenalog 0 No 40mg Common (Triamcinol (Triamcinol 5-17 S pirit one) one) 00:00: - CHI 00 [facility] Bupivicaine Bupivicaine 2020-0 No Common Kennerdell Kennerdell 5-17 Spirit 00:00: - CHI 00 [facility] Kenalog Kenalog 2020-0 No 40mg Common (Triamcinol (Triamcinol 5-17 S pirit one) one) 00:00: - CHI 00 [facility] Bupivicaine Bupivicaine 2020-0 No 2.5mg Common Kennerdell Kennerdell 5-17 Spirit 00:00: - CHI 00 [facility] Kenalog Kenalog 2020-0 No 40mg Common (Triamcinol (Triamcinol 5-17 S pirit one) one) 00:00: - CHI 00 [facility] Bupivicaine Bupivicaine 2020-0 No 2.5mg Common Kennerdell Kennerdell 5-17 Spirit 00:00: - CHI 00 [facility] Kenalog Kenalog 2020-0 No 40mg Common (Triamcinol (Triamcinol 5-17 S pirit one) one) 00:00: - CHI 00 [facility] Bupivicaine Bupivicaine 2020-0 No 2.5mg Common Kennerdell Kennerdell 5-17 Spirit 00:00: - CHI 00 [facility] Kenalog Kenalog 2020-0 No 40mg Common (Triamcinol (Triamcinol 5-17 S pirit one) one) 00:00: - CHI 00 [facility] Bupivicaine Bupivicaine 2020-0 No 2.5mg Common Kennerdell Kennerdell 5-17 Spirit 00:00: - CHI 00 [facility] Kenalog Kenalog 2020-0 No 40mg Common (Triamcinol (Triamcinol 5-17 S pirit one) one) 00:00: - CHI 00 [facility] Bupivicaine Bupivicaine 2020-0 No 2.5mg Common Kennerdell Kennerdell 5-17 Spirit 00:00: - CHI 00 [facility] Kenalog Kenalog 2020-0 No 40mg Common (Triamcinol (Triamcinol 5-17 S pirit one) one) 00:00: - CHI 00 [facility] Bupivicaine Bupivicaine 2020-0 No 2.5mg Common Kennerdell Kennerdell 5-17 Spirit 00:00: - CHI 00 [facility] Kenalog Kenalog 2020-0 No 40mg Common (Triamcinol (Triamcinol 5-17 S pirit one) one) 00:00: - CHI 00 [facility] Bupivicaine Bupivicaine 2020-0 No 2.5mg Common Kennerdell Kennerdell 5-17 Spirit 00:00: - CHI 00 [facility] Luisalog Luisalog 2020-0 No 40mg Common (Triamcinol (Triamcinol 5-17 S pirit one) one) 00:00: - CHI 00 [facility] Bupivicaine Bupivicaine 2020-0 No 2.5mg Common Kennerdell Kennerdell 5-17 Spirit 00:00: - CHI 00 [facility] Marilou Smithalog 2020-0 No 40mg Common (Triamcinol (Triamcinol 5-17 S pirit one) one) 00:00: - CHI 00 [facility] Bupivicaine Bupivicaine 2020-0 No 2.5mg Common Kennerdell Kennerdell 5-17 Spirit 00:00: - CHI 00 [facility] Marilou Smithalog 2020-0 No 40mg Common (Triamcinol (Triamcinol 5-17 S pirit one) one) 00:00: - CHI 00 [facility] Bupivicaine Bupivicaine 2020-0 No 2.5mg Common Kennerdell Kennerdell 5-17 Spirit 00:00: - CHI 00 [facility] Marilou Smithalog 2020-0 No 40mg Common (Triamcinol (Triamcinol 5-17 S pirit one) one) 00:00: - CHI 00 [facility] Metoprolol Metoprolol 2020-0 No 1{table QD Metoprolol Succinate Succinate 9-28 t} Succinate ER 25 MG ER 25 MG 00:00: ER 25 MG 00 Metoprolol Metoprolol 2020-0 No 1{table QD Metoprolol Succinate Succinate 9-28 t} Succinate ER 25 MG ER 25 MG 00:00: ER 25 MG 00 Albuterol Albuterol 2018-11 No Albuterol Sulfate HFA Sulfate HFA 2-19 Sulfate 108 (90 108 (90 00:00: HFA 108 Base) Base) 00 (90 Base) MCG/ACT MCG/ACT MCG/ACT Albuterol Albuterol 2018-11 No Albuterol Sulfate HFA Sulfate HFA 2-19 Sulfate 108 (90 108 (90 00:00: HFA 108 Base) Base) 00 (90 Base) MCG/ACT MCG/ACT MCG/ACT BusPIRone BusPIRone Yes Cher 1 tablet Common HCl HCl 5-20 Millender as needed Spiri t 00:00: for - CHI 00 anxiety [facility] ProAir ProAir No 2{puffs QID ProAir RespiClick RespiClick 2-16 _as_nee RespiClick 108 (90 108 (90 00:00: ded} 108 (90 Base) Base) 00 Base) MCG/ACT MCG/ACT MCG/ACT Tessalon Tessalon No 1{capsu Tessalon Perles 100 Perles 100 2-16 le_as_n Perles 100 MG MG 00:00: eeded} MG 00 Tessalon Tessalon No 1{capsu Tessalon Perles 100 Perles 100 2-16 le_as_n Perles 100 MG MG 00:00: eeded} MG 00 ProAir ProAir No 2{puffs QID ProAir RespiClick RespiClick 2-16 _as_nee RespiClick 108 (90 108 (90 00:00: ded} 108 (90 Base) Base) 00 Base) MCG/ACT MCG/ACT MCG/ACT amLODIPine amLODIPine No 1{table QD amLODIPine Besylate 5 Besylate 5 t} Besylate 5 MG MG MG Metoprolol Metoprolol No 1{capsu QD Metoprolol Succinate Succinate le} Succinate 25 mg 25 mg 25 mg Lexapro 10 Lexapro 10 No 1{table QD Lexapro 10 MG MG t} MG busPIRone busPIRone No busPIRone HCl 5 MG HCl 5 MG HCl 5 MG Carvedilol Carvedilol No 1{table BID Carvedilol 12.5 MG 12.5 MG t_with_ 12.5 MG food} Lexapro 20 Lexapro 20 No 1{table QD Lexapro 20 mg mg t} mg busPIRone busPIRone No BID busPIRone HCl 7.5 MG HCl 7.5 MG HCl 7.5 MG Losartan Losartan No 1{table QD Losartan Potassium Potassium t} Potassium 50 MG 50 MG 50 MG Furosemide Furosemide No 1{table QD Furosemide 40 MG 40 MG t} 40 MG Calcium Calcium No Calcium Allopurinol Allopurinol No 1{table QD Allopurino 100 MG 100 MG t} l 100 MG busPIRone busPIRone No BID busPIRone HCl 7.5 MG HCl 7.5 MG HCl 7.5 MG busPIRone busPIRone No busPIRone HCl 5 MG HCl 5 MG HCl 5 MG Losartan Losartan No 1{table QD Losartan Potassium Potassium t} Potassium 50 MG 50 MG 50 MG amLODIPine amLODIPine No 1{table QD amLODIPine Besylate 5 Besylate 5 t} Besylate 5 MG MG MG Gabapentin Gabapentin No Gabapentin 300 MG 300 MG 300 MG Metoprolol Metoprolol No 1{capsu QD Metoprolol Succinate Succinate le} Succinate 25 mg 25 mg 25 mg Fenofibrate Fenofibrate No 1{table QD Fenofibrat 54 MG 54 MG t_with_ e 54 MG food} Lexapro 10 Lexapro 10 No 1{table QD Lexapro 10 MG MG t} MG Vitamin D-3 Vitamin D-3 No Vitamin D-3 Fish Oil Fish Oil No 1{capsu BID Fish Oil 1000 MG 1000 MG le} 1000 MG Xarelto 20 Xarelto 20 No 1{table QD Xarelto 20 MG MG t_with_ MG food} Losartan Losartan No 1{table QD Losartan Potassium Potassium t} Potassium 50 MG 50 MG 50 MG Allopurinol Allopurinol No 1{table QD Allopurino 100 MG 100 MG t} l 100 MG ARIPiprazol ARIPiprazol No ARIPiprazo e 5 MG e 5 MG le 5 MG amLODIPine amLODIPine No 1{table QD amLODIPine Besylate 10 Besylate 10 t_at_be Besylate MG MG dtime} 10 MG Multaq 400 Multaq 400 No 1{table BID Multaq 400 MG MG t_with_ MG meals} Fenofibrate Fenofibrate No 1{table QD Fenofibrat 54 MG 54 MG t_with_ e 54 MG food} Carvedilol Carvedilol No 1{table BID Carvedilol 12.5 MG 12.5 MG t_with_ 12.5 MG food} Fish Oil Fish Oil No 1{capsu BID Fish Oil 1000 MG 1000 MG le} 1000 MG Lexapro 20 Lexapro 20 No 1{table QD Lexapro 20 MG MG t} MG Xarelto 20 Xarelto 20 No 1{table QD Xarelto 20 MG MG t_with_ MG food} Multaq 400 Multaq 400 No 1{table BID Multaq 400 MG MG t_with_ MG meals} Lexapro 20 Lexapro 20 No 1{table QD Lexapro 20 mg mg t} mg Fenofibrate Fenofibrate No Fenofibrat 54 MG 54 MG e 54 MG amLODIPine amLODIPine No 1{table QD amLODIPine Besylate 10 Besylate 10 t_at_be Besylate MG MG dtime} 10 MG Xarelto 20 Xarelto 20 No 1{table QD Xarelto 20 MG MG t_with_ MG food} Fenofibrate Fenofibrate No Fenofibrat 54 MG 54 MG e 54 MG Lexapro 20 Lexapro 20 No 1{table QD Lexapro 20 mg mg t} mg Multaq 400 Multaq 400 No 1{table BID Multaq 400 MG MG t_with_ MG meals} Fish Oil Fish Oil No 1{capsu BID Fish Oil 1000 MG 1000 MG le} 1000 MG Fenofibrate Fenofibrate No 1{table QD Fenofibrat 54 MG 54 MG t_with_ e 54 MG food} ARIPiprazol ARIPiprazol No ARIPiprazo e 5 MG e 5 MG le 5 MG Allopurinol Allopurinol No 1{table QD Allopurino 100 MG 100 MG t} l 100 MG Losartan Losartan No 1{table BID Losartan Potassium Potassium t} Potassium 50 MG 50 MG 50 MG Lexapro 20 Lexapro 20 No 1{table QD Lexapro 20 MG MG t} MG Multaq 400 Multaq 400 No 1{table BID Multaq 400 MG MG t_with_ MG meals} Fenofibrate Fenofibrate No Fenofibrat 54 MG 54 MG e 54 MG Fenofibrate Fenofibrate No 1{table QD Fenofibrat 54 MG 54 MG t_with_ e 54 MG food} Losartan Losartan No 1{table BID Losartan Potassium Potassium t} Potassium 50 MG 50 MG 50 MG Fish Oil Fish Oil No 1{capsu BID Fish Oil 1000 MG 1000 MG le} 1000 MG Lexapro 20 Lexapro 20 No 1{table QD Lexapro 20 MG MG t} MG Multaq 400 Multaq 400 No 1{table BID Multaq 400 MG MG t_with_ MG meals} amLODIPine amLODIPine No 1{table QD amLODIPine Besylate 10 Besylate 10 t_at_be Besylate MG MG dtime} 10 MG Xarelto 20 Xarelto 20 No 1{table QD Xarelto 20 MG MG t_with_ MG food} Allopurinol Allopurinol No 1{table QD Allopurino 100 MG 100 MG t} l 100 MG Allopurinol Allopurinol No Allopurino 100 MG 100 MG l 100 MG Losartan Losartan No Losartan Potassium Potassium Potassium 50 MG 50 MG 50 MG Lexapro 20 Lexapro 20 No 1{table QD Lexapro 20 mg mg t} mg ARIPiprazol ARIPiprazol No ARIPiprazo e 5 MG e 5 MG le 5 MG Multaq 400 Multaq 400 No 1{table BID Multaq 400 MG MG t_with_ MG meals} Fenofibrate Fenofibrate No Fenofibrat 54 MG 54 MG e 54 MG Fenofibrate Fenofibrate No 1{table QD Fenofibrat 54 MG 54 MG t_with_ e 54 MG food} Lexapro 20 Lexapro 20 No 1{table QD Lexapro 20 MG MG t} MG Fish Oil Fish Oil No 1{capsu BID Fish Oil 1000 MG 1000 MG le} 1000 MG Lexapro 20 Lexapro 20 No 1{table QD Lexapro 20 mg mg t} mg Losartan Losartan No Losartan Potassium Potassium Potassium 50 MG 50 MG 50 MG Multaq 400 Multaq 400 No 1{table BID Multaq 400 MG MG t_with_ MG meals} Xarelto 20 Xarelto 20 No 1{table QD Xarelto 20 MG MG t_with_ MG food} Multaq 400 Multaq 400 No 1{table BID Multaq 400 MG MG t_with_ MG meals} Allopurinol Allopurinol No Allopurino 100 MG 100 MG l 100 MG Allopurinol Allopurinol No 1{table QD Allopurino 100 MG 100 MG t} l 100 MG Losartan Losartan No 1{table BID Losartan Potassium Potassium t} Potassium 50 MG 50 MG 50 MG ARIPiprazol ARIPiprazol No ARIPiprazo e 5 MG e 5 MG le 5 MG amLODIPine amLODIPine No amLODIPine Besylate 10 Besylate 10 Besylate MG MG 10 MG Xarelto 20 Xarelto 20 No 1{table QD Xarelto 20 MG MG t_with_ MG food} Fenofibrate Fenofibrate No Fenofibrat 54 MG 54 MG e 54 MG Allopurinol Allopurinol No 1{table QD Allopurino 100 MG 100 MG t} l 100 MG Allopurinol Allopurinol No Allopurino 100 MG 100 MG l 100 MG Incruse Incruse No 1{puff} QD Incruse Ellipta Ellipta Ellipta 62.5 62.5 62.5 MCG/INH MCG/INH MCG/INH Fish Oil Fish Oil No 1{capsu BID Fish Oil 1000 MG 1000 MG le} 1000 MG amLODIPine amLODIPine No amLODIPine Besylate 10 Besylate 10 Besylate MG MG 10 MG Multaq 400 Multaq 400 No 1{table BID Multaq 400 MG MG t_with_ MG meals} Lexapro 20 Lexapro 20 No 1{table QD Lexapro 20 MG MG t} MG amLODIPine amLODIPine No 1{table QD amLODIPine Besylate 10 Besylate 10 t_at_be Besylate MG MG dtime} 10 MG ARIPiprazol ARIPiprazol No ARIPiprazo e 5 MG e 5 MG le 5 MG Multaq 400 Multaq 400 No 1{table BID Multaq 400 MG MG t_with_ MG meals} Losartan Losartan No 1{table BID Losartan Potassium Potassium t} Potassium 50 MG 50 MG 50 MG Calcium + D Calcium + D No 1{table BID Calcium + 315-200 315-200 t} D 315-200 MG-UNIT MG-UNIT MG-UNIT Fenofibrate Fenofibrate No 1{table QD Fenofibrat 54 MG 54 MG t_with_ e 54 MG food} Lexapro 20 Lexapro 20 No 1{table QD Lexapro 20 mg mg t} mg Incruse Incruse No 1{puff} QD Incruse Ellipta Ellipta Ellipta 62.5 62.5 62.5 MCG/INH MCG/INH MCG/INH Calcium + D Calcium + D No 1{table BID Calcium + 315-200 315-200 t} D 315-200 MG-UNIT MG-UNIT MG-UNIT ARIPiprazol ARIPiprazol No ARIPiprazo e 5 MG e 5 MG le 5 MG Losartan Losartan No 1{table BID Losartan Potassium Potassium t} Potassium 50 MG 50 MG 50 MG Multaq 400 Multaq 400 No 1{table BID Multaq 400 MG MG t_with_ MG meals} amLODIPine amLODIPine No 1{table QD amLODIPine Besylate 10 Besylate 10 t_at_be Besylate MG MG dtime} 10 MG Xarelto 20 Xarelto 20 No 1{table QD Xarelto 20 MG MG t_with_ MG food} Fenofibrate Fenofibrate No Fenofibrat 54 MG 54 MG e 54 MG Multaq 400 Multaq 400 No 1{table BID Multaq 400 MG MG t_with_ MG meals} Allopurinol Allopurinol No Allopurino 100 MG 100 MG l 100 MG Albuterol Albuterol No Albuterol Sulfate HFA Sulfate HFA Sulfate 108 (90 108 (90 HFA 108 Base) Base) (90 Base) MCG/ACT MCG/ACT MCG/ACT amLODIPine amLODIPine No amLODIPine Besylate 10 Besylate 10 Besylate MG MG 10 MG Fish Oil Fish Oil No 1{capsu BID Fish Oil 1000 MG 1000 MG le} 1000 MG Lexapro 20 Lexapro 20 No 1{table QD Lexapro 20 mg mg t} mg Lexapro 20 Lexapro 20 No 1{table QD Lexapro 20 MG MG t} MG Allopurinol Allopurinol No 1{table QD Allopurino 100 MG 100 MG t} l 100 MG Multaq 400 Multaq 400 No 1{table BID Multaq 400 MG MG t_with_ MG meals} amLODIPine amLODIPine No 1{table QD amLODIPine Besylate 10 Besylate 10 t_at_be Besylate MG MG dtime} 10 MG Xarelto 20 Xarelto 20 No 1{table QD Xarelto 20 MG MG t_with_ MG food} Multaq 400 Multaq 400 No 1{table BID Multaq 400 MG MG t_with_ MG meals} Albuterol Albuterol No Albuterol Sulfate HFA Sulfate HFA Sulfate 108 (90 108 (90 HFA 108 Base) Base) (90 Base) MCG/ACT MCG/ACT MCG/ACT Fish Oil Fish Oil No 1{capsu BID Fish Oil 1000 MG 1000 MG le} 1000 MG Fenofibrate Fenofibrate No Fenofibrat 54 MG 54 MG e 54 MG Losartan Losartan No 1{table BID Losartan Potassium Potassium t} Potassium 50 MG 50 MG 50 MG Calcium + D Calcium + D No 1{table BID Calcium + 315-200 315-200 t} D 315-200 MG-UNIT MG-UNIT MG-UNIT ARIPiprazol ARIPiprazol No ARIPiprazo e 5 MG e 5 MG le 5 MG Escitalopra Escitalopra No Escitalopr m Oxalate m Oxalate am Oxalate 20 MG 20 MG 20 MG Allopurinol Allopurinol No Allopurino 100 MG 100 MG l 100 MG amLODIPine amLODIPine No amLODIPine Besylate 10 Besylate 10 Besylate MG MG 10 MG Incruse Incruse No 1{puff} QD Incruse Ellipta Ellipta Ellipta 62.5 62.5 62.5 MCG/INH MCG/INH MCG/INH Albuterol Albuterol No 2{puffs Albuterol Sulfate HFA Sulfate HFA } Sulfate 108 (90 108 (90 HFA 108 Base) Base) (90 Base) MCG/ACT MCG/ACT MCG/ACT Allopurinol Allopurinol No 1{table QD Allopurino 100 MG 100 MG t} l 100 MG Multaq 400 Multaq 400 No 1{table BID Multaq 400 MG MG t_with_ MG meals} amLODIPine amLODIPine No 1{table QD amLODIPine Besylate 10 Besylate 10 t_at_be Besylate MG MG dtime} 10 MG Fenofibrate Fenofibrate No 1{table QD Fenofibrat 54 MG 54 MG t_with_ e 54 MG food} Lexapro 20 Lexapro 20 No 1{table QD Lexapro 20 mg mg t} mg Multaq 400 Multaq 400 No 1{table BID Multaq 400 MG MG t_with_ MG meals} Escitalopra Escitalopra No Escitalopr m Oxalate m Oxalate am Oxalate 20 MG 20 MG 20 MG ARIPiprazol ARIPiprazol No ARIPiprazo e 5 MG e 5 MG le 5 MG Fenofibrate Fenofibrate No Fenofibrat 54 MG 54 MG e 54 MG Losartan Losartan No 1{table BID Losartan Potassium Potassium t} Potassium 50 MG 50 MG 50 MG Allopurinol Allopurinol No Allopurino 100 MG 100 MG l 100 MG Incruse Incruse No 1{puff} QD Incruse Ellipta Ellipta Ellipta 62.5 62.5 62.5 MCG/INH MCG/INH MCG/INH Albuterol Albuterol No Albuterol Sulfate HFA Sulfate HFA Sulfate 108 (90 108 (90 HFA 108 Base) Base) (90 Base) MCG/ACT MCG/ACT MCG/ACT Fish Oil Fish Oil No 1{capsu BID Fish Oil 1000 MG 1000 MG le} 1000 MG Calcium + D Calcium + D No 1{table BID Calcium + 315-200 315-200 t} D 315-200 MG-UNIT MG-UNIT MG-UNIT Xarelto 20 Xarelto 20 No 1{table QD Xarelto 20 MG MG t_with_ MG food} amLODIPine amLODIPine No amLODIPine Besylate 10 Besylate 10 Besylate MG MG 10 MG Multaq 400 Multaq 400 No 1{table BID Multaq 400 MG MG t_with_ MG meals} Lexapro 20 Lexapro 20 No 1{table QD Lexapro 20 mg mg t} mg Multaq 400 Multaq 400 No 1{table BID Multaq 400 MG MG t_with_ MG meals} Fish Oil Fish Oil No 1{capsu BID Fish Oil 1000 MG 1000 MG le} 1000 MG amLODIPine amLODIPine No amLODIPine Besylate 10 Besylate 10 Besylate MG MG 10 MG ARIPiprazol ARIPiprazol No ARIPiprazo e 5 MG e 5 MG le 5 MG Escitalopra Escitalopra No Escitalopr m Oxalate m Oxalate am Oxalate 20 MG 20 MG 20 MG Losartan Losartan No 1{table BID Losartan Potassium Potassium t} Potassium 50 MG 50 MG 50 MG Albuterol Albuterol No Albuterol Sulfate HFA Sulfate HFA Sulfate 108 (90 108 (90 HFA 108 Base) Base) (90 Base) MCG/ACT MCG/ACT MCG/ACT Incruse Incruse No Incruse Ellipta Ellipta Ellipta 62.5 62.5 62.5 MCG/INH MCG/INH MCG/INH Xarelto 20 Xarelto 20 No 1{table QD Xarelto 20 MG MG t_with_ MG food} Calcium + D Calcium + D No 1{table BID Calcium + 315-200 315-200 t} D 315-200 MG-UNIT MG-UNIT MG-UNIT Allopurinol Allopurinol No Allopurino 100 MG 100 MG l 100 MG Fenofibrate Fenofibrate No Fenofibrat 54 MG 54 MG e 54 MG Allopurinol Allopurinol No 1{table QD Allopurino 100 MG 100 MG t} l 100 MG Multaq 400 Multaq 400 No 1{table BID Multaq 400 MG MG t_with_ MG meals} Lexapro 20 Lexapro 20 No 1{table QD Lexapro 20 mg mg t} mg Multaq 400 Multaq 400 No 1{table BID Multaq 400 MG MG t_with_ MG meals} Fish Oil Fish Oil No 1{capsu BID Fish Oil 1000 MG 1000 MG le} 1000 MG amLODIPine amLODIPine No amLODIPine Besylate 10 Besylate 10 Besylate MG MG 10 MG ARIPiprazol ARIPiprazol No ARIPiprazo e 5 MG e 5 MG le 5 MG Escitalopra Escitalopra No Escitalopr m Oxalate m Oxalate am Oxalate 20 MG 20 MG 20 MG Losartan Losartan No 1{table BID Losartan Potassium Potassium t} Potassium 50 MG 50 MG 50 MG Albuterol Albuterol No Albuterol Sulfate HFA Sulfate HFA Sulfate 108 (90 108 (90 HFA 108 Base) Base) (90 Base) MCG/ACT MCG/ACT MCG/ACT Incruse Incruse No Incruse Ellipta Ellipta Ellipta 62.5 62.5 62.5 MCG/INH MCG/INH MCG/INH Xarelto 20 Xarelto 20 No 1{table QD Xarelto 20 MG MG t_with_ MG food} Calcium + D Calcium + D No 1{table BID Calcium + 315-200 315-200 t} D 315-200 MG-UNIT MG-UNIT MG-UNIT Allopurinol Allopurinol No Allopurino 100 MG 100 MG l 100 MG Fenofibrate Fenofibrate No Fenofibrat 54 MG 54 MG e 54 MG Allopurinol Allopurinol No 1{table QD Allopurino 100 MG 100 MG t} l 100 MG Lexapro 20 Lexapro 20 No 1{table QD Lexapro 20 mg mg t} mg Xarelto 20 Xarelto 20 No 1{table QD Xarelto 20 MG MG t_with_ MG food} Losartan Losartan No Losartan Potassium Potassium Potassium 50 MG 50 MG 50 MG Albuterol Albuterol No 2{puffs Albuterol Sulfate HFA Sulfate HFA } Sulfate 108 (90 108 (90 HFA 108 Base) Base) (90 Base) MCG/ACT MCG/ACT MCG/ACT Albuterol Albuterol No Albuterol Sulfate HFA Sulfate HFA Sulfate 108 (90 108 (90 HFA 108 Base) Base) (90 Base) MCG/ACT MCG/ACT MCG/ACT Incruse Incruse No 1{puff} QD Incruse Ellipta Ellipta Ellipta 62.5 62.5 62.5 MCG/INH MCG/INH MCG/INH amLODIPine amLODIPine No amLODIPine Besylate 10 Besylate 10 Besylate MG MG 10 MG Losartan Losartan No 1{table BID Losartan Potassium Potassium t} Potassium 50 MG 50 MG 50 MG Fenofibrate Fenofibrate No Fenofibrat 54 MG 54 MG e 54 MG ARIPiprazol ARIPiprazol No ARIPiprazo e 5 MG e 5 MG le 5 MG amLODIPine amLODIPine No 1{table QD amLODIPine Besylate 10 Besylate 10 t_at_be Besylate MG MG dtime} 10 MG Fish Oil Fish Oil No 1{capsu BID Fish Oil 1000 MG 1000 MG le} 1000 MG Incruse Incruse No Incruse Ellipta Ellipta Ellipta 62.5 62.5 62.5 MCG/INH MCG/INH MCG/INH Calcium + D Calcium + D No 1{table BID Calcium + 315-200 315-200 t} D 315-200 MG-UNIT MG-UNIT MG-UNIT Allopurinol Allopurinol No 1{table QD Allopurino 100 MG 100 MG t} l 100 MG Multaq 400 Multaq 400 No 1{table BID Multaq 400 MG MG t_with_ MG meals} Trelegy Trelegy No 1{puff} QD Trelegy Ellipta Ellipta Ellipta 100-62.5-25 100-62.5-25 100-62.5-2 MCG/ACT MCG/ACT 5 MCG/ACT Xarelto 20 Xarelto 20 No 1{table QD Xarelto 20 MG MG t_with_ MG food} Albuterol Albuterol No 2{puffs Albuterol Sulfate HFA Sulfate HFA } Sulfate 108 (90 108 (90 HFA 108 Base) Base) (90 Base) MCG/ACT MCG/ACT MCG/ACT Losartan Losartan No 1{table BID Losartan Potassium Potassium t} Potassium 50 MG 50 MG 50 MG Pantoprazol Pantoprazol No 1{table QD Pantoprazo e Sodium 40 e Sodium 40 t} le Sodium MG MG 40 MG Allopurinol Allopurinol No Allopurino 100 MG 100 MG l 100 MG Fenofibrate Fenofibrate No 1{table QD Fenofibrat 54 MG 54 MG t_with_ e 54 MG food} Fish Oil Fish Oil No 1{capsu BID Fish Oil 1000 MG 1000 MG le} 1000 MG Metoprolol Metoprolol No 1{table BID Metoprolol Tartrate 50 Tartrate 50 t_with_ Tartrate MG MG food} 50 MG Calcium + D Calcium + D No 1{table BID Calcium + 315-200 315-200 t} D 315-200 MG-UNIT MG-UNIT MG-UNIT Multaq 400 Multaq 400 No 1{table BID Multaq 400 MG MG t_with_ MG meals} buPROPion buPROPion No 1{table QD buPROPion HCl ER (XL) HCl ER (XL) t_in_th HCl ER 450 MG 450 MG e_morni (XL) 450 ng} MG Trelegy Trelegy No 1{puff} QD Trelegy Ellipta Ellipta Ellipta 100-62.5-25 100-62.5-25 100-62.5-2 MCG/ACT MCG/ACT 5 MCG/ACT Xarelto 20 Xarelto 20 No 1{table QD Xarelto 20 MG MG t_with_ MG food} Albuterol Albuterol No 2{puffs Albuterol Sulfate HFA Sulfate HFA } Sulfate 108 (90 108 (90 HFA 108 Base) Base) (90 Base) MCG/ACT MCG/ACT MCG/ACT Losartan Losartan No 1{table BID Losartan Potassium Potassium t} Potassium 50 MG 50 MG 50 MG Pantoprazol Pantoprazol No 1{table QD Pantoprazo e Sodium 40 e Sodium 40 t} le Sodium MG MG 40 MG Allopurinol Allopurinol No Allopurino 100 MG 100 MG l 100 MG Fenofibrate Fenofibrate No 1{table QD Fenofibrat 54 MG 54 MG t_with_ e 54 MG food} Fish Oil Fish Oil No 1{capsu BID Fish Oil 1000 MG 1000 MG le} 1000 MG Metoprolol Metoprolol No 1{table BID Metoprolol Tartrate 50 Tartrate 50 t_with_ Tartrate MG MG food} 50 MG Calcium + D Calcium + D No 1{table BID Calcium + 315-200 315-200 t} D 315-200 MG-UNIT MG-UNIT MG-UNIT Multaq 400 Multaq 400 No 1{table BID Multaq 400 MG MG t_with_ MG meals} buPROPion buPROPion No 1{table QD buPROPion HCl ER (XL) HCl ER (XL) t_in_th HCl ER 450 MG 450 MG e_morni (XL) 450 ng} MG Trelegy Trelegy No 1{puff} QD Trelegy Ellipta Ellipta Ellipta 100-62.5-25 100-62.5-25 100-62.5-2 MCG/ACT MCG/ACT 5 MCG/ACT Xarelto 20 Xarelto 20 No 1{table QD Xarelto 20 MG MG t_with_ MG food} Albuterol Albuterol No 2{puffs Albuterol Sulfate HFA Sulfate HFA } Sulfate 108 (90 108 (90 HFA 108 Base) Base) (90 Base) MCG/ACT MCG/ACT MCG/ACT Losartan Losartan No 1{table BID Losartan Potassium Potassium t} Potassium 50 MG 50 MG 50 MG Pantoprazol Pantoprazol No 1{table QD Pantoprazo e Sodium 40 e Sodium 40 t} le Sodium MG MG 40 MG Allopurinol Allopurinol No Allopurino 100 MG 100 MG l 100 MG Fenofibrate Fenofibrate No 1{table QD Fenofibrat 54 MG 54 MG t_with_ e 54 MG food} Fish Oil Fish Oil No 1{capsu BID Fish Oil 1000 MG 1000 MG le} 1000 MG Metoprolol Metoprolol No 1{table BID Metoprolol Tartrate 50 Tartrate 50 t_with_ Tartrate MG MG food} 50 MG Calcium + D Calcium + D No 1{table BID Calcium + 315-200 315-200 t} D 315-200 MG-UNIT MG-UNIT MG-UNIT Multaq 400 Multaq 400 No 1{table BID Multaq 400 MG MG t_with_ MG meals} buPROPion buPROPion No 1{table QD buPROPion HCl ER (XL) HCl ER (XL) t_in_th HCl ER 450 MG 450 MG e_morni (XL) 450 ng} MG Fish Oil Fish Oil No 1{capsu BID Fish Oil 1000 MG 1000 MG le} 1000 MG busPIRone busPIRone No busPIRone HCl 5 MG HCl 5 MG HCl 5 MG Xarelto 20 Xarelto 20 No 1{table QD Xarelto 20 MG MG t_with_ MG food} Calcium Calcium No Calcium Multaq 400 Multaq 400 No 1{table BID Multaq 400 MG MG t_with_ MG meals} Fenofibrate Fenofibrate No 1{table QD Fenofibrat 54 MG 54 MG t_with_ e 54 MG food} ARIPiprazol ARIPiprazol No 1{table QD ARIPiprazo e 5 MG e 5 MG t} le 5 MG Gabapentin Gabapentin No Gabapentin 300 MG 300 MG 300 MG Vitamin D-3 Vitamin D-3 No Vitamin D-3 Allopurinol Allopurinol No 1{table QD Allopurino 100 MG 100 MG t} l 100 MG Immunizations Ordered Filled Immunization Date Status Comments Sourc e Immunization Name Name FLUZONE HIGH DOSE FLUZONE HIGH DOSE 2022-10-12 Completed [facility] OVER 65 OVER 65 10:57:00 - [facility] Prevnar 13 (PCV13) Prevnar 13 (PCV13) 2021-09-05 Completed [facility] 12:10:00 - [facility] Prevnar 13 (PCV13) Prevnar 13 (PCV13) 2021-09-05 [facility]00 [facility] Prevnar 13 (PCV13) Prevnar 13 (PCV13) 2021-09-05 [facility]pleted [facility]:10:00 [facility] Prevnar 13 (PCV13) Prevnar 13 (PCV13) 2021-09-05 [facility]pleted [facility] 12:10:00 - [facility] Prevnar 13 (PCV13) Prevnar 13 (PCV13) 2021-09-05 [facility] 12:10:00 - [facility] Prevnar 13 (PCV13) Prevnar 13 (PCV13) 2021-09-05 [facility] 12:10:00 - [facility] Prevnar 13 (PCV13) Prevnar 13 (PCV13) 2021-09-05 [facility] 12[facility]00 [facility] Prevnar 13 (PCV13) Prevnar 13 (PCV13) 2021-09-05 [facility]pleted [facility] 12:10:00 - [facility] Prevnar 13 (PCV13) Prevnar 13 (PCV13) 2021-09-05 [facility]pleted [facility] 12:10:00 - [facility] Prevnar 13 (PCV13) Prevnar 13 (PCV13) 2021-09-05 [facility]pleted [facility] 12:10:00 - [facility] Prevnar 13 (PCV13) Prevnar 13 (PCV13) 2021-09-05 [facility]pleted [facility] 12:10:00 - [facility] Bupivicaine Kennerdell Bupivicaine Kennerdell 2021-08-15 Completed [facility] 09:56:00 - [facility] Kenalog Kenalog 2021-08-15 Completed [facility] (Triamcinolone) (Triamcinolone) 09:56:00 - [facility] Bupivicaine Kennerdell Bupivicaine Kennerdell 2021-08-15 Completed [facility] 09:56:00 - [facility] Kenalog Kenalog 2021-08-15 Completed [facility] (Triamcinolone) (Triamcinolone) 09:56:00 - [facility] Bupivicaine Kennerdell Bupivicaine Kennerdell 2021-03-28 Completed [facility] 10:33:00 - [facility] Kenalog Kenalog 2021-03-28 Completed [facility] (Triamcinolone) (Triamcinolone) 10:33:00 - [facility] Bupivicaine Kennerdell Bupivicaine Kennerdell 2021-03-28 Completed [facility] 10:33:00 - [facility] Kenalog Kenalog 2021-03-28 Completed [facility] (Triamcinolone) (Triamcinolone) 10:33:00 - [facility] Bupivicaine Kennerdell Bupivicaine Kennerdell 2021-03-28 Completed [facility] 10:33:00 - [facility] Kenalog Kenalog 2021-03-28 Completed [facility] (Triamcinolone) (Triamcinolone) 10:33:00 - [facility] FLUZONE HIGH DOSE FLUZONE HIGH DOSE 2020-08-06 Completed [facility] OVER 65 OVER 65 09:33:00 - [facility] FLUZONE HIGH DOSE FLUZONE HIGH DOSE 2020-08-06 Completed [facility] OVER 65 OVER 65 09:33:00 - [facility] FLUZONE HIGH DOSE FLUZONE HIGH DOSE 2020-08-06 Completed [facility] OVER 65 OVER 65 09:33:00 - [facility] FLUZONE HIGH DOSE FLUZONE HIGH DOSE 2020-08-06 Completed [facility] OVER 65 OVER 65 09:33:00 - [facility] FLUZONE HIGH DOSE FLUZONE HIGH DOSE 2020-08-06 Completed [facility] OVER 65 OVER 65 09:33:00 - [facility] FLUZONE HIGH DOSE FLUZONE HIGH DOSE 2020-08-06 Completed [facility] OVER 65 OVER 65 09:33:00 - [facility] FLUZONE HIGH DOSE FLUZONE HIGH DOSE 2020-08-06 Completed [facility] OVER 65 OVER 65 09:33:00 - [facility] FLUZONE HIGH DOSE FLUZONE HIGH DOSE 2020-08-06 Completed [facility] OVER 65 OVER 65 09:33:00 - [facility] FLUZONE HIGH DOSE FLUZONE HIGH DOSE 2020-08-06 Completed [facility] OVER 65 OVER 65 09:33:00 - [facility] FLUZONE HIGH DOSE FLUZONE HIGH DOSE 2020-08-06 Completed [facility] OVER 65 OVER 65 09:33:00 - [facility] FLUZONE HIGH DOSE FLUZONE HIGH DOSE 2020-08-06 Completed [facility] OVER 65 OVER 65 09:33:00 - [facility] FLUZONE HIGH DOSE FLUZONE HIGH DOSE 2020-08-06 Completed [facility] OVER 65 OVER 65 09:33:00 - [facility] FLUZONE HIGH DOSE FLUZONE HIGH DOSE 2020-08-06 Completed [facility] OVER 65 OVER 65 09:33:00 - [facility] FLUZONE HIGH DOSE FLUZONE HIGH DOSE 2019-08-21 Completed [facility] OVER 65 OVER 65 16:08:00 - [facility] FLUZONE HIGH DOSE FLUZONE HIGH DOSE 2019-08-21 Completed [facility] OVER 65 OVER 65 16:08:00 - [facility] FLUZONE HIGH DOSE FLUZONE HIGH DOSE 2019-08-21 Completed [facility] OVER 65 OVER 65 16:08:00 - [facility] FLUZONE HIGH DOSE FLUZONE HIGH DOSE 2019-08-21 Completed [facility] OVER 65 OVER 65 16:08:00 - [facility] FLUZONE HIGH DOSE FLUZONE HIGH DOSE 2019-08-21 Completed [facility] OVER 65 OVER 65 16:08:00 - [facility] FLUZONE HIGH DOSE FLUZONE HIGH DOSE 2019-08-21 Completed [facility] OVER 65 OVER 65 16:08:00 - [facility] FLUZONE HIGH DOSE FLUZONE HIGH DOSE 2019-08-21 Completed [facility] OVER 65 OVER 65 16:08:00 - [facility] FLUZONE HIGH DOSE FLUZONE HIGH DOSE 2019-08-21 Completed [facility] OVER 65 OVER 65 16:08:00 - [facility] FLUZONE HIGH DOSE FLUZONE HIGH DOSE 2019-08-21 Completed [facility] OVER 65 OVER 65 16:08:00 - [facility] FLUZONE HIGH DOSE FLUZONE HIGH DOSE 2019-08-21 Completed [facility] OVER 65 OVER 65 16:08:00 - [facility] FLUZONE HIGH DOSE FLUZONE HIGH DOSE 2019-08-21 Completed [facility] OVER 65 OVER 65 16:08:00 - [facility] FLUZONE HIGH DOSE FLUZONE HIGH DOSE 2019-08-21 Completed [facility] OVER 65 OVER 65 16:08:00 - [facility] FLUZONE HIGH DOSE FLUZONE HIGH DOSE 2019-08-21 Completed [facility] OVER 65 OVER 65 16:08:00 - [facility] FLUZONE HIGH DOSE FLUZONE HIGH DOSE 2019-08-21 Completed [facility] OVER 65 OVER 65 00:00:00 - [facility] Flucelvax - Flucelvax - 2019-01-08 [facility] multidose vial 16:42:00 - [facility] Flucelvax - Flucelvax - 2019-01-08 [facility]pleted [facility] multidose vial 16:42:00 - [facility] Flucelvax - Flucelvax - 2019-01-08 [facility]pleted [facility] multidose vial 16:42:00 - [facility] Flucelvax - Flucelvax - 2019-01-08 [facility]pleted [facility]ial multidose vial 16:42:00 - [facility] Flucelvax - Flucelvax - 2019-01-08 [facility]ial multidose vial 16:42:00 - [facility] Flucelvax - Flucelvax - 2019-01-08 [facility]pleted [facility] multid[facility]ial multidose vial 16:42:00 - [facility] Flucelvax - Flucelvax - 2019-01-08 [facility]pleted [facility] multid[facility]ial multidose vial 16:42:00 - [facility] Flucelvax - Flucelvax - 2019-01-08 Completed [facility] multid[facility]ial multidose vial 16:42:00 - [facility] Flucelvax - Flucelvax - 2019-01-08 [facility]pleted [facility]ial multidose vial 16:42:00 - [facility] Flucelvax - Flucelvax - 2019-01-08 Completed [facility]ial multidose vial 16:42:00 - [facility] Flucelvax - Flucelvax - 2019-01-08 Completed [facility]ial multidose vial 16:42:00 - [facility] Flucelvax - Flucelvax - 2019-01-08 Completed [facility] multid[facility]ial multidose vial 16:42:00 - [facility] Flucelvax - Flucelvax - 2019-01-08 [facility]pleted [facility]ial multidose vial 16:42:00 - [facility] Flucelvax - Flucelvax - 2019-01-08 [facility] multidose vial 00:00:00 - [facility] Pfizer COVID-19 Pfizer COVID-19 Unknown [facility] Flucelvax - Flucelvax - Unknown [facility] multid[facility] multidose vial - [facility] FLUZONE HIGH DOSE FLUZONE HIGH DOSE Unknown Completed [facility] OVER 65 OVER 65 - [facility] FLUZONE HIGH DOSE FLUZONE HIGH DOSE Unknown Completed [facility] OVER 65 OVER 65 - [facility] FLUZONE HIGH DOSE FLUZONE HIGH DOSE Unknown Completed [facility] OVER 65 OVER 65 - [facility] FLUZONE HIGH DOSE FLUZONE HIGH DOSE Unknown Completed [facility] OVER 65 OVER 65 - [facility] Prevnar 13 (PCV13) Prevnar 13 (PCV13) Unknown Completed [facility] Pfizer COVID-19 Pfizer COVID-19 Unknown [facility] - [facility] Flucelvax - Flucelvax - Unknown [facility] multid[facility] multidose vial - [facility] FLUZONE HIGH DOSE FLUZONE HIGH DOSE Unknown Completed [facility] OVER 65 OVER 65 - [facility] FLUZONE HIGH DOSE FLUZONE HIGH DOSE Unknown Completed [facility] OVER 65 OVER 65 - [facility] FLUZONE HIGH DOSE FLUZONE HIGH DOSE Unknown Completed [facility] OVER 65 OVER 65 - [facility] FLUZONE HIGH DOSE FLUZONE HIGH DOSE Unknown Completed [facility] OVER 65 OVER 65 - [facility] Prevnar 13 (PCV13) Prevnar 13 (PCV13) Unknown Completed [facility] Pfizer COVID-19 Pfizer COVID-19 Unknown [facility] - [facility] Flucelvax - Flucelvax - Unknown [facility] multid[facility] multidose vial - [facility] FLUZONE HIGH DOSE FLUZONE HIGH DOSE Unknown Completed [facility] OVER 65 OVER 65 - [facility] FLUZONE HIGH DOSE FLUZONE HIGH DOSE Unknown Completed [facility] OVER 65 OVER 65 - [facility] FLUZONE HIGH DOSE FLUZONE HIGH DOSE Unknown Completed [facility] OVER 65 OVER 65 - [facility] FLUZONE HIGH DOSE FLUZONE HIGH DOSE Unknown Completed [facility] OVER 65 OVER 65 - [facility] Prevnar 13 (PCV13) Prevnar 13 (PCV13) Unknown Completed [facility] Vital Signs Vital Name Observation Time Observation Value Comments Source height 2023-01-02 14:00:00 64 [in_i] [facility] weight 2023-01-02 14:00:00 294.6 [lb_av] [facility] temperature 2023-01-02 14:00:00 97.1 [degF] [facility] bmi 2023-01-02 14:00:00 50.56 kg/m2 [facility] oximetry 2023-01-02 14:00:00 96 % [facility] respiratory rate 2023-01-02 14:00:00 17 /min [facility] blood pressure 2023-01-02 14:00:00 134 mm[Hg] [facility] - systolic [facility] blood pressure 2023-01-02 14:00:00 80 mm[Hg] [facility] - diastolic [facility] height 2022-10-19 10:40:00 64 [in_i] [facility] weight 2022-10-19 10:40:00 296.0 [lb_av] [facility] temperature 2022-10-19 10:40:00 97.2 [degF] [facility] bmi 2022-10-19 10:40:00 50.8 kg/m2 [facility] oximetry 2022-10-19 10:40:00 99 % [facility] respiratory rate 2022-10-19 10:40:00 17 /min [facility] blood pressure 2022-10-19 10:40:00 138 mm[Hg] [facility] - systolic [facility] blood pressure 2022-10-19 10:40:00 71 mm[Hg] [facility] - diastolic [facility] height 2022-09-05 15:30:00 64 [in_i] Common [facility] weight 2022-09-05 15:30:00 285.4 [lb_av] [facility] temperature 2022-09-05 15:30:00 97.8 [degF] Common [facility] bmi 2022-09-05 15:30:00 48.98 kg/m2 Common [facility] - [facility] blood pressure 2022-09-05 15:30:00 133 mm[Hg] Common [facility] - systolic [facility] blood pressure 2022-09-05 15:30:00 78 mm[Hg] Common [facility] - diastolic [facility] height 2022-07-06 11:20:00 64 [in_i] Common [facility] weight 2022-07-06 11:20:00 282.0 [lb_av] Common [facility] temperature 2022-07-06 11:20:00 95.8 [degF] Common S [facility] bmi 2022-07-06 11:20:00 48.40 kg/m2 [facility] oximetry 2022-07-06 11:20:00 98 % [facility] respiratory rate 2022-07-06 11:20:00 16 /min Comm on Spirit - [facility] blood pressure 2022-07-06 11:20:00 132 mm[Hg] Common [facility] - systolic [facility] blood pressure 2022-07-06 11:20:00 68 mm[Hg] Common [facility] - diastolic [facility] height 2022-05-23 08:00:00 64 [in_i] Common [facility] weight 2022-05-23 08:00:00 284.3 [lb_av] Common [facility] bmi 2022-05-23 08:00:00 48.79 kg/m2 Common S pirit - [facility] blood pressure 2022-05-23 08:00:00 138 mm[Hg] Common [facility] - systolic [facility] blood pressure 2022-05-23 08:00:00 84 mm[Hg] Common [facility] - diastolic [facility] height 2022-04-04 11:00:00 64 [in_i] Common S [facility] weight 2022-04-04 11:00:00 291 [lb_av] Common [facility] temperature 2022-04-04 11:00:00 97.2 [degF] Common [facility] bmi 2022-04-04 11:00:00 49.94 kg/m2 Common S [facility] oximetry 2022-04-04 11:00:00 96 % Common [facility] respiratory rate 2022-04-04 11:00:00 17 /min Comm on [facility] blood pressure 2022-04-04 11:00:00 134 mm[Hg] Common [facility] - systolic [facility] blood pressure 2022-04-04 11:00:00 63 mm[Hg] Common [facility] - diastolic [facility] height 2022-01-03 11:40:00 64 [in_i] [facility] weight 2022-01-03 11:40:00 306.2 [lb_av] [facility] temperature 2022-01-03 11:40:00 97.7 [degF] Common [facility] bmi 2022-01-03 11:40:00 52.55 kg/m2 Common [facility] oximetry 2022-01-03 11:40:00 95 % Common [facility] respiratory rate 2022-01-03 11:40:00 18 /min Comm on [facility] blood pressure 2022-01-03 11:40:00 116 mm[Hg] Common [facility] - systolic [facility] blood pressure 2022-01-03 11:40:00 58 mm[Hg] Common [facility] - diastolic [facility] height 2021-12-06 11:00:00 64 [in_i] Common [facility] weight 2021-12-06 11:00:00 307.2 [lb_av] [facility] temperature 2021-12-06 11:00:00 97.3 [degF] Common [facility] bmi 2021-12-06 11:00:00 52.73 kg/m2 Common S [facility] oximetry 2021-12-06 11:00:00 97 % [facility] respiratory rate 2021-12-06 11:00:00 16 /min Comm on [facility] blood pressure 2021-12-06 11:00:00 147 mm[Hg] Common [facility] - systolic [facility] blood pressure 2021-12-06 11:00:00 70 mm[Hg] [facility] - diastolic [facility] height 2021-09-05 11:00:00 64 [in_i] [facility] weight 2021-09-05 11:00:00 304 [lb_av] [facility] temperature 2021-09-05 11:00:00 97.4 [degF] [facility] bmi 2021-09-05 11:00:00 52.18 kg/m2 [facility] oximetry 2021-09-05 11:00:00 98 % [facility] respiratory rate 2021-09-05 11:00:00 15 /min Comm on [facility] blood pressure 2021-09-05 11:00:00 130 mm[Hg] Common [facility] - systolic [facility] blood pressure 2021-09-05 11:00:00 82 mm[Hg] [facility] - diastolic [facility] height 2021-08-15 09:00:00 64 [in_i] Common S pirit - [facility] weight 2021-08-15 09:00:00 305.3 [lb_av] Common [facility] bmi 2021-08-15 09:00:00 52.4 kg/m2 Common S pirit - [facility] blood pressure 2021-08-15 09:00:00 136 mm[Hg] Common [facility] - systolic [facility] blood pressure 2021-08-15 09:00:00 80 mm[Hg] [facility] - diastolic [facility] height 2021-07-05 11:20:00 64 [in_i] Common [facility] weight 2021-07-05 11:20:00 293.2 [lb_av] Common [facility] temperature 2021-07-05 11:20:00 97.4 [degF] Common [facility] bmi 2021-07-05 11:20:00 50.32 kg/m2 Common [facility] oximetry 2021-07-05 11:20:00 96 % Common [facility] blood pressure 2021-07-05 11:20:00 136 mm[Hg] Common [facility] systolic [facility] blood pressure 2021-07-05 11:20:00 80 mm[Hg] Common [facility] diastolic [facility] Procedures This patient has no known procedures. Encounters Start End Encounter Admission Attending Care Care Encounter Source Date/Time Date/Time Type Type Clinicians Facility Department ID 2023-07-31 Outpatient Cornejo, STLMLC STLMLC [id number] Common 13:17:00 Maira [id number] [facility] 2023-07-06 Outpatient Cornejo, STLMLC STLMLC [id number] Common 08:45:00 Maira [id number] [facility] 2023-04-26 Outpatient Cornejo, STLMLC STLMLC [id number] Common 12:10:00 Maira [id number] [facility] 2023-02-21 Outpatient Cornejo, STLMLC STLMLC [id number] Common 13:51:00 Maira [id number] [facility] 2023-01-01 Outpatient Cornejo, STLMLC STLMLC [id number] Common 12:55:00 Maira [id number] [facility] 2022-12-26 Outpatient Cornejo, STLMLC STLMLC [id number] Common 14:49:00 Maira [id number] [facility] 2022-10-16 Outpatient Alissa Geiger STLC STLMLC [id number] Common 14:34:01 [id number] [facility] 2022-10-06 Outpatient Geiger, Na STLMLC STLMLC [id number] Common 09:03:00 [facility] 2022-10-04 Outpatient Geiger, Na STLMLC STLMLC [id number] Common 10:53:00 [facility] 2022-09-06 Outpatient Geiger, Na STLMLC STLMLC [id number] Common 14:20:00 [facility] 2022-07-06 Outpatient Geiger, Na STLMLC STLMLC [id number] Common 11:15:00 [facility] 2022-05-23 Outpatient Geiger, Na STLMLC STLMLC [id number] Common 11:39:01 [facility] 2022-03-31 Outpatient Geiger, Na STLMLC STLMLC [id number] Common 09:15:09 [facility] 2021-12-07 Outpatient Geiger, Na STLMLC STLMLC [id number] Common 14:38:52 [facility] 2021-12-07 Outpatient Geiger, Na STLMLC STLMLC [id number] Common 14:07:56 [id number] [facility] 2021-12-07 Outpatient Geiger, Na STLMLC STLMLC [id number] Common 13:40:56 [id number] [facility] 2021-12-07 Outpatient Geiger, Na STLMLC STLMLC [id number] 2 Common 13:03:51 [id number] [facility] 2021-12-07 Outpatient Geiger, Na STLMLC STLMLC [id number] 2 Common 12:54:28 [id number] [facility] 2021-12-07 Outpatient Ladonna, STLMLC STLMLC [id number] Common 12:52:57 Rocio 20518 [facility] 2021-12-07 Outpatient Ladonna, STLMLC STLMLC [id number] Common 12:22:30 Rocio [id number] [facility] 2021-12-07 Outpatient Ladonna, STLMLC STLMLC [id number] Common 12:21:43 Rocio [id number] [facility] 2021-12-07 Outpatient Ladonna, STLMLC STLMLC [id number] Common 12:17:50 Rocio 95897 [facility] 2021-12-07 Outpatient Ladonna, STLMLC STLMLC [id number] Common 12:17:22 Rocio 08080 [facility] 2021-12-07 Outpatient Ladonna, STLMLC STLMLC [id number] Common 12:17:07 Rocio 74538 [facility] 2021-12-07 Outpatient Ladonna, STLMLC STLMLC [id number] Common 12:16:14 Rocio [id number] [facility] 2021-12-07 Outpatient Ladonna, STLMLC STLMLC [id number] Common 11:58:39 Rocio 18139 [facility] 2021-12-07 Outpatient Ladonna, STLMLC STLMLC [id number] Common 11:58:38 Rocio 42664 [facility] 2021-12-07 Outpatient Millender, STLMLC STLMLC [id number] Common 11:14:05 Cher [id number] [facility] 2023-01-04 2023-01-04 (TEL) STLMLC STLMLC [id number] Co mmon 00:00:00 00:00:00 [facility] 2023-01-02 2023-01-02 OFFICE STLMLC STLMLC [id number] Co mmon 00:00:00 00:00:00 VISIT Spirit ESTAB PT - [facility]I LEVEL 5 [facility] 2022-12-26 2022-12-26 (TEL) STLMLC STLMLC [id number] Co mmon 00:00:00 00:00:00 [facility] 2022-10-19 2022-10-19 OFFICE STLMLC STLMLC [id number] Co mmon 00:00:00 00:00:00 VISIT Spirit ESTAB PT - CHI LEVEL 4 [facility] 2022-09-06 2022-09-06 (TEL) STLMLC STLMLC [id number] Co mmon 00:00:00 00:00:00 Spirit - [facility] 2022-09-05 2022-09-05 OFFICE STLMLC STLMLC [id number] Co mmon 00:00:00 00:00:00 VISIT Spirit ESTAB PT - CHI LEVEL 4 [facility] 2022-07-06 2022-07-06 OFFICE STLMLC STLMLC [id number] Co mmon 00:00:00 00:00:00 VISIT Spirit ESTAB PT - CHI LEVEL 4 [facility] 2022-07-03 2022-07-03 (TEL) STLMLC STLMLC [id number] Co mmon 00:00:00 00:00:00 Spirit - [facility] 2022-05-23 2022-05-23 OFFICE STLMLC STLMLC [id number] Co mmon 00:00:00 00:00:00 VISIT Spirit ESTAB PT - CHI LEVEL 4 [facility] 2022-04-04 2022-04-04 OFFICE STLMLC STLMLC [id number] Co mmon 00:00:00 00:00:00 VISIT Spirit ESTAB PT - CHI LEVEL 4 [facility] 2022-01-31 2022-01-31 (TEL) STLMLC STLMLC [id number] Co mmon 00:00:00 00:00:00 Spirit - [facility] 2022-01-03 2022-01-03 OFFICE STLMLC STLMLC [id number] Co mmon 00:00:00 00:00:00 VISIT EST Spir it PT LEVEL 3 - [facility] 2021-12-06 2021-12-06 OFFICE STLMLC STLMLC [id number] Co mmon 00:00:00 00:00:00 VISIT Spirit ESTAB PT - CHI LEVEL 4 [facility] 2021-09-05 2021-09-05 OFFICE STLMLC STLMLC [id number] Co mmon 00:00:00 00:00:00 VISIT Spirit ESTAB PT - CHI LEVEL 4 [facility] 2021-08-15 2021-08-15 OFFICE STLMLC STLMLC [id number] Co mmon 00:00:00 00:00:00 VISIT [facility] PT - [facility] LEVEL 4 [facility] 2021-07-05 2021-07-05 OFFICE STLMLC STLMLC [id number] Co mmon 00:00:00 00:00:00 VISIT [facility] PT - CHI LEVEL 4 [facility] 2021-06-27 2021-06-27 Outpatient STLMLC STLMLC [id number] Common 00:00:00 00:00:00 [facility] 2021-05-05 2021-05-05 Outpatient STLMLC STLMLC [id number] Common 00:00:00 00:00:00 [facility] 2021-03-31 2021-03-31 Outpatient STLMLC STLMLC [id number] Common 00:00:00 00:00:00 [facility] 2021-03-28 2021-03-28 Outpatient STLMLC STLMLC [id number] Common 00:00:00 00:00:00 [facility] 2021-03-04 2021-03-04 Outpatient STLMLC STLMLC [id number] Common 00:00:00 00:00:00 [facility] 2021-02-28 2021-02-28 Outpatient STLMLC STLMLC [id number] Common 00:00:00 00:00:00 [facility] 2020-11-30 2020-11-30 Outpatient STLMLC STLMLC [id number] Common 00:00:00 00:00:00 [facility] 2020-11-16 2020-11-16 Outpatient STLMLC STLMLC [id number] Common 00:00:00 00:00:00 [facility] 2020-11-11 2020-11-11 Outpatient STLMLC STLMLC [id number] Common 00:00:00 00:00:00 [facility] 2020-11-09 2020-11-09 Outpatient STLMLC STLMLC [id number] Common 00:00:00 00:00:00 [facility] 2020-09-06 2020-09-06 Outpatient STLMLC STLMLC [id number] Common 00:00:00 00:00:00 [facility] 2020-08-09 2020-08-09 Outpatient STLMLC STLMLC [id number] Common 00:00:00 00:00:00 [facility] 2020-08-06 2020-08-06 Outpatient STLMLC STLMLC [id number] Common 00:00:00 00:00:00 [facility] 2020-04-14 2020-04-14 [facility] [id number] Common 13:42:00 13:42:[address] [facility] [address] [facility] 2020-01-28 2020-01-28 [facility] [id number] Common 08:00:00 08:00:00 t [facility] [address] [facility] 2019-10-30 2019-10-30 [facility] [id number] Common 08:15:00 08:15:00 t [facility] [address] [facility] 2019-08-30 2019-08-30 [facility] [id number] Common 16:38:00 16:38:[address] [facility] 2019-08-21 2019-08-21 [facility] [id number] Common 16:00:00 16:00:[address] [facility] 2019-02-13 2019-02-13 [facility] [id number] Common 16:00:00 16:00:[address] [facility] 2019-01-11 2019-01-11 [facility] [id number] Common 11:26:00 11:26:[address] [facility] 2019-01-08 2019-01-08 [facility] [id number] Common 15:30:00 15:30:[address] [facility] 2018-11-07 2018-11-07 [facility] [id number] Common 11:00:00 11:00:00 [facility] 2018-08-13 2018-08-13 Outpatient Marcus Mcgee [id number] Common 16:15:00 16:15:00 [facility] Results This patient has no known results.
[2023-09-10 09:26] LABS: Absolute Lymphocytes (CBC) 2.3 K/uL (0.7-4.9); Hematocrit 47.9 % (36.0-45.0); Lymphocytes % 26.6 % (15.3-44.8); MCV 87.5 fL (80-100); MPV 8.2 fL (7.6-11.3); Platelets 251 thou/uL (152-406); RBC Red Blood Cell Count 5.47 M/uL (3.86-4.86)
[2023-09-10 09:27] LABS: Protime INR 1.57
[2023-09-10 09:43] LABS: Bilirubin Direct 0.2 mg/dL (0-0.2); Bilirubin Total 0.6 mg/dL (0.2-1.0); Potassium 4.4 mEq/L (3.5-5.1)
[2023-09-10 09:44] LABS: Albumin 3.6 g/dL (3.4-5.0); Bilirubin Indirect, Calculated 0.4 mg/dL (0.2-0.8); Magnesium 1.9 mg/dL (1.6-2.4); Protein, Total 7.8 g/dL (6.4-8.2); Troponin High Sensitivity 9.1 pg/mL (<58.9)
--- NOTE | 2023-09-10 09:52 | RAD REPORT ---
EXAM DESCRIPTION: aMycol Single View09/10/2023 9:26 am CLINICAL HISTORY: Chest pain COMPARISON: July 2023 FINDINGS: The lungs appear clear of acute infiltrate. The heart is moderately enlarged IMPRESSION: No acute abnormalities displayed
--- NOTE | 2023-09-10 10:20 | RAD REPORT ---
EXAM DESCRIPTION: CT - Head Brain Wo Cont - 09/10/2023 10:05 am CLINICAL HISTORY: Visual disturbance COMPARISON: July 2023 TECHNIQUE: Computed axial tomography of the head was obtained. IV contrast was not requested. All CT scans are performed using dose optimization technique as appropriate and may include automated exposure control or mA/KV adjustment according to patient size. FINDINGS: An intracranial bleed is not seen The ventricles are normal in caliber No extra-axial fluid collection is noted. No significant hyperdensity within the brain visualized Fluid within the sinuses/ mastoids is not seen. IMPRESSION: No acute intracranial abnormality is seen If patient's symptoms persist MRI of the brain would be recommended
--- NOTE | 2023-09-10 10:30 | ER ---
Nurse's Notes [facility] Name: Radha Mendez Age: 68 yrs Sex: Female : 1955 Arrival Date: 09/10/2023 Time: 08:57 Bed 7 Private MD: Diagnosis: Essential (primary) hypertension;Paroxysmal atrial fibrillation;Dizziness and giddiness Presentation: 09/10 09:02 Chief complaint: Patient states: high BP this morning, was feeling dizzy, feels like iw her Afib is acting up , is having jaw pain. Coronavirus screen: At this time, the client does not indicate any symptoms associated with coronavirus-19. Ebola Screen: Patient negative for fever greater than or equal to 101.5 degrees Fahrenheit, and additional compatible Ebola Virus Disease symptoms Patient denies exposure to infectious person. Patient denies travel to an Ebola-affected area in the 21 days before illness onset. No symptoms or risks identified at this time. Initial Sepsis Screen: Does the patient meet any 2 criteria? No. Patient's initial sepsis screen is negative. Does the patient have a suspected source of infection? No. Patient's initial sepsis screen is negative. Risk Assessment: Do you want to hurt yourself or someone else? Patient reports no desire to harm self or others. Onset of symptoms was September 10, 2023. 09:02 Method Of Arrival: Ambulatory iw 09:02 Acuity: BRANDAN 3 iw Historical: - Allergies: 09:03 Codeine; iw 09:03 Iodine; iw - Home Meds: 09:10 Fish Oil 1,000 mg (120 mg-180 mg) oral capsule daily [Active]; Xarelto 20 mg oral iw tablet daily [Active]; metoprolol tartrate 100 mg Oral tablet 2 times per day [Active]; pantoprazole 40 mg oral tablet, delayed release (enteric coated) daily [Active]; fenofibrate 54 mg oral tablet daily [Active]; bupropion HCl 300 mg Oral Tablet, Extended Release 24 hr daily [Active]; bupropion HCl 150 mg Oral Tablet, Extended Release 24 hr daily [Active]; Trelegy Ellipta 100-62.5-25 mcg inhalation Blister, With Inhalation Device daily [Active]; albuterol sulfate 90 mcg/actuation Inhl Aerosol Powder, Breath Activ.with Sensor as needed [Active]; - PMHx: 09:03 a-fib; Hypertension; iw - Immunization history:: Adult Immunizations up to date. - Social history:: Smoking status: Patient denies any tobacco usage or history of. Screenin:04 [facility] ED Fall Risk Assessment (Adult) History of falling in the last 3 months, mb9 including since admission No falls in past 3 months (0 pts) Confusion or Disorientation No (0 pts) Intoxicated or Sedated No (0 pts) Impaired Gait No (0 pts) Mobility Assist Device Used No (0 pt) Altered Elimination No (0 pt) Score/Fall Risk Level 0 - 2 = Low Risk Oriented to surroundings, Maintained a safe environment, Educated pt \T\ family on fall prevention, incl call for assistance when getting out of bed. Abuse screen: Denies threats or abuse. Nutritional screening: No deficits noted. Tuberculosis screening: No symptoms or risk factors identified. Assessment: 09:19 General: Appears in no apparent distress. Behavior is calm, cooperative. Pain: mb9 Complains of pain in jaw Pain does not radiate. Quality of pain is described as aching, throbbing, Pain began 1 day ago. Is continuous. Neuro: Ojeda Agitation-Sedation Scale (RASS): 0 - Alert and Calm Level of Consciousness is awake, alert, obeys commands, Oriented to person, place, time, situation, Appropriate for age Reports dizziness, since last night. Cardiovascular: Reports nausea, palpitations, Heart tones S1 S2 present Patient's skin is warm and dry. Rhythm is atrial fibrillation. Respiratory: Airway is patent Respiratory effort is even, unlabored, Respiratory pattern is regular, symmetrical, Breath sounds are clear bilaterally. GI: Abdomen is obese, Bowel sounds present X 4 quads. Abd is soft and non tender X 4 quads. Reports nausea. : No signs and/or symptoms were reported regarding the genitourinary system. EENT: No signs and/or symptoms were reported regarding the EENT system. Derm: Skin is pink, warm \T\ dry. Musculoskeletal: Range of motion: intact in all extremities. 10:08 Reassessment: Pt returned from CT. jl7 10:23 Reassessment: Patient and/or family updated on plan of care and expected duration. Pain mb9 level reassessed. Patient is alert, oriented x 3, equal unlabored respirations, skin warm/dry/pink. Patient states feeling better. Patient states symptoms have improved. Vital Signs: 09:03 Pulse 81; Resp 18; Temp 97.5; Pulse Ox 99% on R/A; Weight 132.45 kg; Height 5 ft. 4 in. iw ; 09:19 BP 156 / 94; mb9 10:08 BP 122 / 88; Pulse 92; Resp 16; Pulse Ox 98% on R/A; mb9 10:42 BP 146 / 99; Pulse 100; Resp 15; Pulse Ox 95% ; jl7 09:03 Body Mass Index 50.12 (132.45 kg, 162.56 cm) iw ED Course: 08:59 Patient arrived in ED. rg4 08:59 Tanvi Franco PA-C is PHCP. sb4 08:59 Jay Huff MD is Attending Physician. sb4 09:03 Triage completed. iw 09:04 Tania Riggs, RN is Primary Nurse. mb9 09:04 Arm band placed on. mb9 09:04 Placed in gown. Bed in low position. Call light in reach. Side rails up X 1. Client mb9 placed on continuous cardiac and pulse oximetry monitoring. NIBP monitoring applied. internal medicine nurse on. 09:13 EKG done, by ED staff, reviewed by Tanvi Franco PA-C. mb9 09:15 Initial lab(s) drawn, by me, sent to lab. Inserted saline lock: 20 gauge in right jl7 antecubital area, using aseptic technique. Blood collected. 09:28 XRAY Chest (1 view) In Process Unspecified. EDMS 09:39 No provider procedures requiring assistance completed. mb9 10:06 Head Brain Wo Cont CT In Process Unspecified. EDMS 10:23 IV discontinued, intact, bleeding controlled, No redness/swelling at site. Pressure mb9 dressing applied. 10:28 Russ Young MD is Referral Physician. sb4 10:43 Provided Education on: use of medication. jl7 Administered Medications: 10:27 Drug: Meclizine PO 25 mg PO once Route: PO; mb9 Medication: 09:04 VIS not applicable for this client. mb9 Outcome: 10:29 Discharge ordered by . sb4 10:43 Discharged to home ambulatory, jl7 10:43 Condition: stable 10:43 Discharge instructions given to patient, Instructed on discharge instructions, follow up and referral plans. medication usage, Demonstrated understanding of instructions, follow-up care, medications, Prescriptions given X 1, 10:43 Patient left the ED. nae7 Signatures: Dispatcher [employer] EDAndria Russell, Nely Zee RN rg4 Liya Mckinney RN RN jl7 Tanvi Franco, PABo PABo sb4 Tania Riggs RN RN mb9 Corrections: (The following items were deleted from the chart) 09:07 09:06 BP 200 / 79; jlNichole jl7 09:21 09:19 BP 177 / 126; mb9 mb9 10:12 10:08 BP 146 / 82; Pulse 92bpm; Resp 16bpm; Pulse Ox 98% RA; mb9 mb9
--- NOTE | 2023-09-10 10:30 | EDPHYS ---
Physician Documentation [facility] Name: Radha Mendez Age: 68 yrs Sex: Female : 1955 Arrival Date: 09/10/2023 Time: 08:57 Bed 7 Private MD: ED Physician Jay Huff HPI: 09/10 09:15 This 68 yrs old Female presents to ER via Ambulatory with complaints of High Blood sb4 Pressure. 09:43 Patient presents to the emergency department with complaints of elevated blood pressure sb4 with associated headache, dizziness, blurry vision, and generally feeling unwell. Patient was recently admitted here for A-fib and hypertension. 5 days ago, she was taken to the OR and cardioverted successfully. She states that when she was discharged, she was taken off her blood pressure medicines and started on metoprolol. She states that she has not been feeling well the past couple of days. She is post to have an appointment with her public relations associate tomorrow. Historical: - Allergies: 09:03 Codeine; iw 09:03 Iodine; iw - Home Meds: 09:10 Fish Oil 1,000 mg (120 mg-180 mg) oral capsule daily [Active]; Xarelto 20 mg oral iw tablet daily [Active]; metoprolol tartrate 100 mg Oral tablet 2 times per day [Active]; pantoprazole 40 mg oral tablet, delayed release (enteric coated) daily [Active]; fenofibrate 54 mg oral tablet daily [Active]; bupropion HCl 300 mg Oral Tablet, Extended Release 24 hr daily [Active]; bupropion HCl 150 mg Oral Tablet, Extended Release 24 hr daily [Active]; Trelegy Ellipta 100-62.5-25 mcg inhalation Blister, With Inhalation Device daily [Active]; albuterol sulfate 90 mcg/actuation Inhl Aerosol Powder, Breath Activ.with Sensor as needed [Active]; - PMHx: 09:03 a-fib; Hypertension; iw - Immunization history:: Adult Immunizations up to date. - Social history:: Smoking status: Patient denies any tobacco usage or history of. ROS: 09:43 Cardiovascular: Negative for chest pain, palpitations, and edema, sb4 09:43 Constitutional: Positive for malaise, 09:43 Neuro: Positive for dizziness, headache, visual changes, 09:43 All other systems are negative, Exam: 09:43 Head/Face: Normocephalic, atraumatic. Eyes: Extra-ocular motions intact. Periorbital sb4 areas with no swelling, redness, or edema. ENT: Mucous membranes moist. Respiratory: Lungs have equal breath sounds bilaterally, clear to auscultation and percussion. No rales, rhonchi or wheezes noted. No increased work of breathing, no retractions or nasal flaring. Abdomen/GI: Soft, non-tender, no distension. Skin: Warm, dry with normal turgor. Normal color with no rashes, no lesions, and no evidence of cellulitis. MS/ Extremity: Pulses equal, no cyanosis. Neurovascular intact. Full, normal range of motion. Neuro: Awake and alert, GCS 15, oriented to person, place, time, and situation. Motor strength 5/5 in all extremities. Sensory grossly intact. 09:43 Constitutional: The patient appears alert, awake, anxious, obese, 09:43 Cardiovascular: Rate: normal, Rhythm: irregularly irregular, Pulses: no pulse deficits are appreciated, Edema: is not appreciated, JVD: is not appreciated, Vital Signs: 09:03 Pulse 81; Resp 18; Temp 97.5; Pulse Ox 99% on R/A; Weight 132.45 kg; Height 5 ft. 4 in. iw ; 09:19 BP 156 / 94; mb9 10:08 BP 122 / 88; Pulse 92; Resp 16; Pulse Ox 98% on R/A; mb9 10:42 BP 146 / 99; Pulse 100; Resp 15; Pulse Ox 95% ; jl7 09:03 Body Mass Index 50.12 (132.45 kg, 162.56 cm) iw MDM: 09:06 Patient medically screened. sb4 09:43 Differential diagnosis: A-fib RVR, hypertensive emergency, migraine. sb4 10:27 Data interpreted: hospital monitor: rate is 92 beats/min, rhythm is atrial fibrillation, sb4 Pulse oximetry: on room air is 98 %. Data reviewed: vital signs, nurses notes, old medical records, lab test result(s), EKG, radiologic studies, and as a result, I will discharge patient. Consideration of Admission/Observation Escalation of care including admission/observation considered. Management of patient was discussed with the following: Chemical Handler: ifeanyi Bella with patient being discharged and follow up in office tomorrow. Care significantly affected by the following chronic conditions: Hypertension, atrial fibrillation. Counseling: I had a detailed discussion with the patient and/or guardian regarding the historical points, exam findings, and any diagnostic results supporting the discharge/admit diagnosis, the presence of at least one elevated blood pressure reading (>120/80) during this emergency department visit, lab results, radiology results, the need for outpatient follow up, a public relations associate, to return to the emergency department if symptoms worsen or persist or if there are any questions or concerns that arise at home. 09/10 09:12 Order name: Basic Metabolic Panel; Complete Time: 09:47 sb4 09/10 09:12 Order name: CBC with Diff; Complete Time: 09:37 sb4 09/10 09:12 Order name: LFT's; Complete Time: 09:47 sb4 09/10 09:12 Order name: Magnesium; Complete Time: 09:47 sb4 09/10 09:12 Order name: NT PRO-BNP; Complete Time: 09:47 sb4 09/10 09:12 Order name: PT-INR; Complete Time: 09:29 sb4 09/10 09:12 Order name: Troponin HS; Complete Time: 09:47 sb4 09/10 09:12 Order name: XRAY Chest (1 view); Complete Time: 09:52 sb4 09/10 09:55 Order name: Head Brain Wo Cont CT; Complete Time: 10:20 sb4 09/10 09:12 Order name: EKG; Complete Time: 09:13 sb4 09/10 09:12 Order name: Cardiac monitoring; Complete Time: 09:21 sb4 09/10 09:12 Order name: EKG - Nurse/Tech; Complete Time: 09:21 sb4 09/10 09:12 Order name: IV Saline Lock; Complete Time: 09:21 sb4 09/10 09:12 Order name: Labs collected and sent; Complete Time: 09:21 sb4 09/10 09:12 Order name: O2 Per Protocol; Complete Time: 09:21 sb4 09/10 09:12 Order name: O2 Sat Monitoring; Complete Time: 09:21 sb4 EC:16 Rate is 92 beats/min. Rhythm is irregularly irregular, A fib with Occasional PVCs. Left sb4 axis deviation noted. QRS interval is normal at 86 msec. QT interval is normal at [address] changes noted. Clinical impression: Atrial Fibrillation. Interpreted by me. Reviewed by me. Administered Medications: 10:27 Drug: Meclizine PO 25 mg PO once Route: PO; mb9 Disposition: 11:03 Co-signature as Attending Physician, Jay Huff MD I reviewed the patient's care rn provided by the Advanced Practice Provider and agree with the diagnosis and treatment plan. Disposition Summary: 09/10/23 10:29 Discharge Ordered Notes: Location: Home sb4 Problem: new sb4 Symptoms: have improved sb4 Condition: Stable sb4 Diagnosis - Essential (primary) hypertension sb4 - Paroxysmal atrial fibrillation sb4 - Dizziness and giddiness sb4 Followup: sb4 - With: Russ Young MD - When: Tomorrow - Reason: Recheck today's complaints, Re-evaluation by your physician Discharge Instructions: - Discharge Summary Sheet sb4 - Atrial Fibrillation sb4 - Dizziness sb4 - Hypertension, Adult sb4 Forms: - Medication Reconciliation Form sb4 - Thank You Letter sb4 - Antibiotic Education sb4 - Prescription Opioid Use sb4 - Patient Portal Instructions sb4 - Leadership Thank You Letter sb4 Prescriptions: - Meclizine 25 mg Oral Tablet - take 1 tablet ORAL route every 8 hours As needed; 30 tablet; Refills: 0, sb4 Product Selection Permitted Signatures: Dispatcher [employer] Andria Lopez, RN Jay Solis MD MD rn Brown, Sophia, PABo PABo sb4 Tania Riggs RN JENAE mb9
[2023-09-10] MEDS ORDERED: MECLIZINE HCL 12.5 MG TAB ONE (10:39)
[2023-09-10 11:10] VITALS: TEMP 97.5
[2023-09-10 11:27] VITALS: BP 146/99; O2SAT 95
--- NOTE | 2023-09-11 07:52 | EKG ---
Test Date: 2023-09-10 Test Time: 09:13:06 E Commerce Director: ELFEGO MEASUREMENT RESULTS: Intervals: Rate: 92 CT: QRSD: 86 QT: 344 QTc: 425 [place]: P: CT: QRS: -76 T: 79 INTERPRETIVE STATEMENTS: Atrial fibrillation with premature ventricular or aberrantly conducted complexes Left axis deviation Low voltage QRS Abnormal ECG Compared to ECG 09/05/2023 11:39:16 Ventricular premature complex(es) now present Left-axis deviation now present Low QRS voltage now present Myocardial infarct finding no longer present Electronically Signed On 09-11-23 07:49:55 CDT by Russ Young
== END 2023-09-10 10:43 | disposition home or self-care (01) ==
LOC: ER 08:57
DX: I10 Essential (primary) hypertension (principal); I48.0 Paroxysmal atrial fibrillation; R42 Dizziness and giddiness; Z79.01 Long term (current) use of anticoagulants; Z88.5 Allergy status to narcotic agent; Z91.048 Other nonmedicinal substance allergy status
CPT/HCPCS: 93005; 85025; 80048; 36415; 83735; 85610; 80076; 84484; 83880; 70450; 71045; 99285; J8597